=== PATIENT | female | born 1955 | race African-American/Black ===

== ENCOUNTER 2017-12-21 15:26 | Inpatient (IN) | payer MEDICARE, MEDICAID ==
[2017-12-21 16:45] LABS: #Lymphocytes 1.2 thou/uL (1.20-3.40); #Monocytes 0.7 thou/uL (0.11-0.59); %Basophils 0.3 % (0.0-1.0); %Eosinophils 0.3 % (0.0-10.0); %Monocytes 10.2 % (0.0-10.0); %Neutrophils 72.2 % (42.0-75.0); Hemoglobin 13.4 g/dL (12.0-16.0); Mean Corpuscular Hemoglobin 29.5 pg (27.0-31.0); Mean Corpuscular Volume 92.1 fL (78.0-98.0); Mean Platelet Volume 7.7 fL (7.4-10.4); Platelet Count 137 thou/uL (130-400); RBC Distribution Width 12.7 % (11.5-14.5); Red Blood Cell (RBC) Count 4.54 mill/uL (4.20-5.40)
--- NOTE | 2017-12-21 17:05 | CT ---
NONCONTRAST CT HEAD: 12/21/2017 HISTORY: Trauma. The patient fell one day ago. Right-sided neck pain. COMPARISON: None available. FINDINGS: There is a low density focus in the left thalamus, as well as in the left lentiform nucleus, related to lacunar infarctions of indeterminate age. There is no evidence of an acute cortical infarction, h emorrhage, mass effect, or midline shift. Scattered areas of diminished attenuation are seen within the periventricular white matter, which are nonspecific but likely reflective of chronic small vessel ischemic changes. A low density focus is present at the right aspect of the maurice, which likely represents a lacunar inf arction, also of indeterminate age. There is mild cerebral volume loss, not unexpected for the patie nt's age. The ventricular system is normal in size, shape, and position. Minimal mucosal thickening is present in the left maxillary antrum. The remainder of the visualized paranasal sinuses and mastoid air cells are clear. The calvarial structures are intact without evide nce of a fracture. IMPRESSION: 1. Lacunar infarctions in the left thalamus, left lentiform nucleus, and right maurice, of indeterminat e age. 2. Chronic small vessel ischemic changes. 3. Mild cerebral volume loss. 4. No definite acute intracranial abnormality is demonstrated. POS: [facility]
[2017-12-21 17:09] LABS: CKMB 31.5 ng/mL (0-6.6); Troponin I 2.422 ng/mL (< 0.028)
--- NOTE | 2017-12-21 17:09 | CT ---
NONCONTRAST CT CERVICAL SPINE: Date: 12/21/17 HISTORY: Trauma. Patient tripped over a rug and fell 1 day ago. Patient has right shoulder pain, as well as ri ght-sided neck pain. TECHNIQUE: Contiguous axial CT images are obtained through the cervical spine from skull base to cervicothoracic junction. Sagittal and coronal reformatted images are provided. FINDINGS: No fracture or subluxation is seen involving the cervical spine. Prominent multilevel osteophytes are seen at the C4-5, C5-6, and C6-7 levels anteriorly. Minimal post erior osteophyte formation is seen at multiple levels of the cervical spine. There is mild right-side d neural foraminal narrowing at the C3-4 level related to uncinate process hypertrophy. The prevertebral soft tissues are within normal limits. Prominent vascular calcifications are seen in the carotid artery bifurcations, as well as involving t he carotid siphons. There is a small amount of fluid in prevertebral space extending from the C2-3 level to the level of the C4 vertebral body. Ligamentous injury cannot be excluded. MRI cervical spine is recommended for f urther evaluation. IMPRESSION: 1. Small amount of fluid in the prevertebral space anterior to the upper cervical spine. Ligamentous injury cannot be excluded based on this exam, and further evaluation with MRI cervical spine is tutu mmended. 2. No fracture or subluxation involving the cervical spine. 3. Multilevel degenerative changes. There is a disc osteophyte complex seen at the C3-4 level result ing in what appears to be severe narrowing of the central spinal canal. There is also mild to moderat e right-sided neural foraminal narrowing at this level. Above findings discussed with Dr. Burks in the emergency department on 12/21/17 at 1644 hours. CODE CR. POS: [facility]
[2017-12-21 18:25] LABS: ALT (SGPT) 105 U/L (8-55); AST (SGOT) 210 U/L (5-34); Albumin 3.4 g/dL (3.5-5.0); Alkaline Phosphatase 94 U/L (40-150); Anion Gap 15 mmol/L (10-20); BUN (Urea Nitrogen) 7 mg/dL (9.8-20.1); Bilirubin, Total 1.2 mg/dL (0.2-1.2); CK (CPK) 1727 U/L (29-168); Calc. Creatinine Clearance 0 mL/min (70-130); Calcium 9.3 mg/dL (7.8-10.44); Carbon Dioxide 20 mmol/L (22-29); Chloride 99 mmol/L (98-107); Estimated GFR-MDRD Greater than 90; Globulin 4.7 g/dL (2.4-3.5); Glucose 94 mg/dL (70-105); Potassium 3.7 mmol/L (3.5-5.1); Protein, Total 8.1 g/dL (6.0-8.3); Sodium 130 mmol/L (136-145)
--- NOTE | 2017-12-21 18:31 | RAD ---
RIGHT SHOULDER THREE VIEWS: HISTORY: Right shoulder pain. TECHNIQUE: AP internal, external, and scapular Y views of the right shoulder obtained. FINDINGS: Three views of the right shoulder demonstrate no evidence of right shoulder fractures, subluxations, or bony lesions. IMPRESSION: Normal three views right shoulder. POS: [facility]
--- NOTE | 2017-12-21 18:35 | RAD ---
RIGHT KNEE THREE VIEWS: HISTORY: Trauma. Right knee pain. TECHNIQUE: AP, lateral, and oblique views of the right knee obtained. FINDINGS: Three views of the right knee demonstrate osteoarthritic changes seen in the anterior, medial, and la teral compartments of the right knee. This appears to be chronic. No evidence of acute right knee fracture seen. Atherosclerotic calcification seen of the superficial femoral artery and popliteal artery. IMPRESSION: Right knee osteoarthritic changes without evidence of acute abnormalities seen. POS: [facility]
[2017-12-21] MEDS ORDERED: HYDROcodone/Acetaminophen 5/325 mg Tablet ONE (18:45)
--- NOTE | 2017-12-21 18:59 | MRI ---
MRI CERVICAL SPINE: HISTORY: Fall. Tripped over rug, with shoulder pain. TECHNIQUE: Multiplanar, multisequence, noncontrast enhanced MR images of the cervical spine obtained. FINDINGS: C1-C2: Unremarkable. C2-C3: Unremarkable. C3-C4: There is marked disk desiccation. There is a broad-based disk osteophyte complex, centrally, compressing the thecal sac, resulting in severe C3-C4 central spinal stenosis. There is severe righ t C3-C4 neural foraminal narrowing and moderate to severe left C3-C4 neural foraminal narrowing due t o uncovertebral osteophyte hypertrophy. The spinal cord is compressed at this level, without evidenc e of definite edema at this time. C4-C5: There is disk desiccation seen. There is a broad-based disk osteophyte complex centrally, co mpressing the thecal sac, resulting in moderate to severe central spinal stenosis and mild to moderat e bilateral neural foraminal narrowing, due to uncovertebral osteophyte hypertrophy. C5-C6: Disk desiccation is seen. There is a broad-based disk osteophyte complex centrally, resultin g in a moderate degree of central spinal stenosis. There is severe bilateral C5-C6 neural foraminal narrowing, due to uncovertebral osteophyte hypertrophy. C6-C7: Disk desiccation is seen. There is a broad-based disk osteophyte complex, resulting in mild to moderate central stenosis. There is moderate bilateral C6-C7 neural foraminal narrowing. C7-T1: A small central disk protrusion is seen. The central canal does not demonstrate significant cord compression or neural foraminal narrowing. IMPRESSION: 1. Severe/critical C3-C4 central and right neural foraminal narrowing. 2. Broad-based central disk osteophyte complexes, compressing the thecal sac at C4-C5, C5-C6, and C6 -C7, to a lesser degree. 3. There is also severe C5-C6 neural foraminal narrowing due to uncovertebral osteophyte hypertrophy . POS: [facility]
[2017-12-21] MEDS ORDERED: Enoxaparin Sodium 60 MG/0.6 ML SYRINGE ONE (19:33)
[2017-12-21] MEDS ORDERED: Nitroglycerin 0.4 MG TAB (25 Tab Bottle) SL PRN (19:55)
[2017-12-21] MEDS ORDERED: Ondansetron HCl/PF 4 MG/2 ML Vial IVP PRN (19:57)
[2017-12-21 20:48] LABS: Troponin I 3.264 ng/mL (< 0.028)
[2017-12-21 23:06] LABS: Critical Call Chem Troponin I RESULT DECREASING; Troponin I 3.213 ng/mL (< 0.028)
[2017-12-21] MEDS: Atorvastatin Calcium 40 MG TAB PO SCH (23:07)
[2017-12-21 23:17] VITALS: BMI 22.2
[2017-12-22] MEDS: Sodium Chloride 0.9% 1,000 ML IV SCH ×3 (03:54→18:02)
[2017-12-22 06:46] LABS: Anion Gap 14 mmol/L (10-20); BUN (Urea Nitrogen) 12 mg/dL (9.8-20.1); Calc. Creatinine Clearance 79 mL/min (70-130); Calcium 8.9 mg/dL (7.8-10.44); Carbon Dioxide 19 mmol/L (22-29); Chloride 99 mmol/L (98-107); Cholesterol 122 mg/dl (< 200 Desired); Estimated GFR-MDRD Greater than 90; Glucose 86 mg/dL (70-105); HDL Cholesterol 60 mg/dL (>60 Neg Risk); LDL Cholesterol, Calculated 54 mg/dL; Potassium 3.7 mmol/L (3.5-5.1); Sodium 128 mmol/L (136-145); Triglycerides 39 mg/dL (Less than 150)
--- NOTE | 2017-12-22 07:56 | HP ---
TIME OF EVALUATION: 7:50 p.m. PRIMARY CARE PHYSICIAN: Dr. Demarcus Serrato. CODE STATUS: The patient is DNR/DNI as she has expressed herself during the interview. The daughter was at bedside and agree with the patient's wishes. CHIEF COMPLAINT: "I had a fall, stay on the floor for a long time." HISTORY OF PRESENT ILLNESS: This is a 62-year-old female patient with past medical history of hypertension, COPD, CVA, multiple TIAs, chronic pain, migraine, benign paroxysmal vertigo, bradycardia, came to the hospital after having a mechanical fall just reported that she has tripped and fell. She stayed on the floor for few hours and waiting for the family to comment. Patient reported not passing out, there was no clear triggers, no alleviating factors, no chest pain. The patient was found to have elevated CK that was not significantly elevated. We will give some hydration and monitor kidney function. The other finding was the patient has elevated troponin of 2+, second troponin around 3, admitting the patient for acute ND, elevation of the CK. Trauma workup was negative. Symptoms were severe. REVIEW OF SYSTEMS: Constitutional: No fever or chills or generalized weakness. Respiratory: No cough, sputum production, or shortness of breath. Cardiovascular: No chest pain, no palpitation. Gastrointestinal: No nausea, vomiting, diarrhea, or abdominal pain. Central Nervous Systems: No dizziness, headache, or feeling lightheaded. Genitourinary: No burning on urination. Extremities: No leg swelling. All other systems were reviewed and negative except for the findings mentioned above. PAST MEDICAL HISTORY: Positive and mentioned in the HPI. PAST SURGICAL HISTORY: Appendectomy. PSYCHIATRIC HISTORY: No previous psychiatric history. SOCIAL HISTORY: No alcohol, no drugs, no smoking history. FAMILY HISTORY: Father and mother with hypertension and heart problems. REPORTED MEDICATIONS: Butalbital-acetaminophen 325 mg/40 mg q.6 hours p.r.n., losartan/hydrochlorothiazide 100 mg/25 mg, Tylenol extra strength 500 mg 1-2 tablets q.6 hours p.r.n. PHYSICAL EXAMINATION: VITAL SIGNS: On presentation, blood pressure 147/88 with heart rate 71, respiratory rate was 16, temperature 98.2, pain was 5, oxygen saturation 98 on room air. GENERAL APPEARANCE: The patient is alert, oriented, in no any acute distress, some pain due to the fall. HEENT: Eyes: Normal conjunctivae. Moist oral mucosa. Anicteric. NECK: No JVD. RESPIRATORY: Bilateral air entry. No rales, no wheezes. Symmetric expansion. CARDIOVASCULAR: Normal rate, regular rhythm. No murmurs, no gallop. EXTREMITIES: No edema. ABDOMEN: Soft, normal bowel sounds. MUSCULOSKELETAL: Baseline range of motion and strength and some mild tenderness due to fall. Peripheral pulses seem to be intact. Capillary refills seem to be intact. SKIN: Warm and intact. No pallor, no rash, no redness. NEUROLOGIC: Baseline sensorium. No evidence of any new focal weakness. Baseline speech. Cranial nerves seem to be intact. PSYCHIATRIC: The patient is in good mood. No anxiety. Oriented, optimal judgment. IMAGING: EKG was reviewed. The patient has normal sinus rhythm with a rate of 54, RI 148, QRS 68, QT corrected 474. No other ischemic findings on the EKG. Also, the waves seems to be more symmetric than usual. Trauma workup, brain CT , lacunar infarction of the left thalamus, left lentiform nucleus, and right maurice of indeterminate age, chronic small vessel disease, ischemic changes, mild cerebral volume loss, no definite acute intracranial abnormalities are demonstrated. Cervical spine CT, the patient has small amount of fluid in the prevertebral space anterior to the upper cervical spine, ligamentous injuries cannot be excluded on this exam and further evaluation with MRI cervical spine is recommended. No fracture or subluxation involving the cervical spine, multilevel degenerative changes. There are disk osteophyte complexes at the C3- C4 level resulting in what appears to be severe narrowing of the central spinal canal. There is also [id number] right-sided neural foraminal narrowing of this level. Knee x-ray was done. The patient has right knee osteoarthritic changes without evidence of acute abnormalities. Shoulder x-ray normal in three views of right shoulder. Cervical spine MRI, severe critical C3-C4 central and right neural foraminal narrowing, broad-based central disk osteophyte complexes compressing the thecal sac at C4-C5, C5-C6, and C6-C7 or lesser degree. There is also severe C5-C6 neural foraminal narrowing due to uncovertebral osteophyte hypertrophy. LABORATORY DATA: Labs were reviewed. The patient had white count of 7.0, hemoglobin 13.4, MCV 92, platelet count 137,000. Sodium 130, potassium 3.7, chloride 99, carbon dioxide was 20, anion gap 15, BUN 7, creatinine 0.66, GFR greater than 90, glucose 94, calcium 9.3, total bilirubin 1.2, AST 210, ALT 105. CK 1727, CK-MB 31, troponin first one was 2.4 and second one was 3.2, albumin 3.4, globulin 4.7, albumin globulin ratio 0.7. ASSESSMENT AND PLAN: The patient will be placed in the hospital with the following medical problems: 1. Srm-LO-unkqufe elevation myocardial infarction. The patient had troponin 2.4, second one 3.2. The patient has been placed on beta-blockers, aspirin, Lovenox, statins. Blood pressure in the (09:15) inhibitors in the next 24 hours if blood pressure allows it. Cardiology consult continue. Place the patient on n.p.o. 2. Elevated CK, mild elevation in 1000 range. This is likely secondary to seen on the floor for a long time. Kidney function is normal. We will monitor. We will give hydration (09:54) of history of her cardiac function. 3. Mildly elevated liver function tests, might be related to acute rhabdo. 4. Cervical pain secondary to severe C3-C4 central and right neural foraminal narrowing. Neurosurgery has been called. We will follow recommendations. 5. Deep venous thrombosis prophylaxis. 6. History of hypertension, this is controlled. We will monitor. We will adjust treatment as needed. 7. History of migraine, this is chronic, not present at this point. We will adjust treatment depending on patient's clinical response. 8. History of chronic obstructive pulmonary disease, not present at this time. Reconcile home medications. Adjust treatment as needed. MTDD
[2017-12-22] MEDS ORDERED: Enoxaparin Sodium 60 MG/0.6 ML SYRINGE SC SCH (08:00)
[2017-12-22 08:07] LABS: Hemoglobin 12.3 g/dL (12.0-16.0); Mean Corpuscular HGB CONC 31.7 g/dL (32.0-36.0); Mean Corpuscular Hemoglobin 30.6 pg (27.0-31.0); Mean Corpuscular Volume 96.4 fL (78.0-98.0); Mean Platelet Volume 8.4 fL (7.4-10.4); Platelet Count 139 thou/uL (130-400); RBC Distribution Width 12.8 % (11.5-14.5); Red Blood Cell (RBC) Count 4.01 mill/uL (4.20-5.40); White Blood Cell (WBC) Count 5.4 thou/uL (4.8-10.8)
[2017-12-22] MEDS ORDERED: Enoxaparin Sodium 40 MG/0.4 ML SYRINGE SC SCH (09:00)
[2017-12-22 09:01] LABS: Band 1 % (5-11); Eosinophils 2 % (0-10); Lymphocytes 44 % (21-51); MDiff Complete? YES; Monocytes 7 % (0-10); Neutrophil 46 % (42-75); PLT Morphology Comment Appears Adequate; Polychromasia SLIGHT = 2-3 cells (100X) (0-2/hpf)
[2017-12-22] MEDS: Metoprolol Tartrate 25 MG TAB PO SCH ×2 (09:05→21:09)
[2017-12-22] MEDS: Aspirin 325 mg Enteric Coated Tablet PO SCH (09:05)
--- NOTE | 2017-12-22 09:24 | CON ---
DATE OF CONSULTATION: 12/22/2017 REASON FOR CONSULTATION: Elevated troponin. PRIMARY MODERATE NEEDS TEACHER: None. HISTORY OF PRESENT ILLNESS: Ms. Hurley is a pleasant 62-year-old woman who recently fell. She state s she tripped and fell. She got her feet caught up in a rug. She denied any recent chest pain, pres sure, shortness of breath, syncope or presyncope. Troponin was performed from the emergency room wit h a troponin of 3. She also had a cervical x-ray in addition to a spinal MRI which showed severe and critical stenosis at the C3-C4 level. She again has no previous history of underlying coronary disease. Past cardiac risk factors include hypertension and hyperlipidemia. PAST MEDICAL HISTORY: As above including appendectomy. SOCIAL HISTORY: No current tobacco or alcohol use. CURRENT MEDICATIONS: Include atenolol, losartan/hydrochlorothiazide. REVIEW OF SYSTEMS: Ten-point review of systems reviewed as above, otherwise negative. PHYSICAL EXAMINATION: VITAL SIGNS: Blood pressure 120/81, pulse 60, temperature 98.3. GENERAL: She is currently in a C-collar. NEUROLOGIC: The patient is alert and oriented times 3 with no focal neurologic deficits. HEENT: Sclerae without icterus. Mouth has moist mucous membranes with normal pallor. NECK: No JVD. Carotid upstroke brisk. No bruits bilaterally. LUNGS: Clear to auscultation with unlabored respirations. BACK: No scoliosis or kyphosis. CARDIAC: Regular rate and rhythm with normal S1 and S2. No S3 or S4 noted. No significant rubs, mur murs, thrills, or gallops noted throughout the precordium. PMI is not displaced. There is no parast ernal heave. ABDOMEN: Soft, nontender, nondistended. No peritoneal signs present. No hepatosplenomegaly. No abn ormal striae. EXTREMITIES: 2+ femoral and 2+ dorsalis pedis pulses. No cyanosis, clubbing, or edema. SKIN: No gross abnormalities. PERTINENT LABS: Hemoglobin 12.3, creatinine 0.7. Peak troponin 3.264. EKG normal sinus rhythm, nor mal EKG. IMPRESSION: 1. Elevated troponin. 2. Recent fall. 3. Severe spinal stenosis. RECOMMENDATIONS: Certainly a difficult situation with Ms. Hurley. Her troponin is fairly elevated w ith an elevated CK-MB of 31. We will need to discuss with surgery on how to proceed. May consider a diagnostic angio. At this point, would not recommend intervening with stent given the need for aspi rin, Plavix, and heparin. I discussed coronary angiography in full detail with Ms. Hurley.
[2017-12-22] MEDS ORDERED: Lidocaine 1% (PF) 30 ML VIAL ONE (12:38)
--- NOTE | 2017-12-22 16:54 | CON ---
DATE OF CONSULTATION: 12/22/2017 HISTORY OF PRESENT ILLNESS: Ms. Hurley is a very pleasant 62-year-old woman who was admitted to [place] following a fall with elevated troponin. She reports to me that she has been having quite a few of these falls, namely stating that there had been a specific incident of 14 separate falls over the last 4 months. She states that that is an increase from her typical, which in the past started roughly 3 years ago or so, she started to have increasing falls after a stroke, but then over the last few months, she feels like that is progressively getting worse, more frequent and then now she has in the last few weeks started to experience significant hand numbness and weakness. The MRI performed in the Emergency Department reveals severe cervical spinal stenosis at C3-C4 with what looks to be some T2 signal change in the cord. On examination, she has clumsy fine motor movement in the bilateral hands. Her assembler arranger strength is maintained. Her Lee is negative. She has a negative Spurling's maneuver. I discussed with her that given the T2 signal change in her progressive myopathic symptoms that she will likely need surgical intervention at some point. She understands this and is on board. We will plan to see her in the outpatient setting for this. She does not need to wear her cervical collar for this specific issuel. I understand that she also is pending some cardiac intervention for her elevated troponins, we will defer to cardiology and plan around their interventions. GLADIS
--- NOTE | 2017-12-22 17:34 | PDOC.PN ---
- Subjective Encounter Start Date: 12/22/17 Encounter Start Time: 09:00 Pt seen for followup re: NSTEMI. Denies chest pain, shortness of breath, fevers or chills. - Objective Resuscitation Status: Resuscitation Status DNR:Do Not Resuscitate MAR Reviewed: Yes Vital Signs & Weight: Vital Signs (12 hours) Temp Pulse Resp BP Pulse Ox 12/22/17 15:16 98.5 F 66 14 151/79 H 97 12/22/17 11:54 98.0 F 57 L 14 139/80 98 12/22/17 08:00 98.3 F 60 14 128/81 97 Weight Weight 129 lb 11.2 oz Result Diagrams: 12/22/17 05:28 12/22/17 05:28 EKG Reviewed by me: Yes (Tele: NSR) Phys Exam - Physical Examination Constitutional: NAD HEENT: moist MMs, sclera anicteric, oral pharynx no lesions, 2+ tonsils cervical collar Respiratory: no wheezing, no rales, no rhonchi, clear to auscultation bilateral Cardiovascular: RRR, no rub S1, S2 Gastrointestinal: soft, non-tender, no distention, positive bowel sounds Neurological: moves all 4 limbs Psychiatric: normal affect, A&O x 3 Dx/Plan (1) NSTEMI (non-ST elevated myocardial infarction) Code(s): I21.4 - NON-ST ELEVATION (NSTEMI) MYOCARDIAL INFARCTION Status: Acute Comment: continue Lovenox, Lopressor and aspirin. Continue tele monitor. (2) Hyponatremia Code(s): E87.1 - HYPO-OSMOLALITY AND HYPONATREMIA Status: Acute Comment: Pt was on thiazide diuretic at home, will stop thiazide and recheck sodium level (3) Fall Code(s): W19.XXXA - UNSPECIFIED FALL, INITIAL ENCOUNTER Status: Acute Comment: will need OT/PT eval/tx when cardiac issues stable (4) Rhabdomyolysis Code(s): M62.82 - RHABDOMYOLYSIS Status: Acute Comment: CK improving, decrease IV fluid rate to 70 ml/hr NS (5) Cervical spinal stenosis Code(s): M48.02 - SPINAL STENOSIS, CERVICAL REGION Status: Chronic Comment: await neurosurgery input (6) HTN (hypertension) Code(s): I10 - ESSENTIAL (PRIMARY) HYPERTENSION Status: Chronic Comment: controlled (7) COPD (chronic obstructive pulmonary disease) Status: Chronic Comment: stable - Plan * . Review of Systems - Review of Systems Constitutional: negative: fever, chills, sweats, weakness, malaise Respiratory: negative: Cough, Shortness of Breath, SOB with Excertion, Pleuritic Pain, Wheezing Cardiovascular: negative: chest pain, palpitations, orthopnea, paroxysmal nocturnal dyspnea, edema, light headedness Gastrointestinal: negative: Nausea, Vomiting, Abdominal Pain, Diarrhea, Constipation, Melena, Hematochezia Genitourinary: negative: Dysuria, Frequency, Incontinence, Hematuria, Retention Skin: negative: Rash, Lesions, Jerrell, Bruising - Medications/Allergies Allergies/Adverse Reactions: Allergies Allergy/AdvReac Type Severity Reaction Status Date / Time No Known Drug Allergies Allergy Verified 12/21/17 20:06 Medications: Current Medications Acetaminophen (Tylenol) 650 mg PO Q4H PRN PRN Reason: Headache/Fever or Pain Aspirin (Ecotrin) 325 mg PO DAILY [facility] Last Admin: 12/22/17 09:05 Dose: 325 mg Atorvastatin Calcium (Lipitor) 80 mg PO HS [facility] Last Admin: 12/21/17 23:07 Dose: 80 mg Enoxaparin Sodium (Lovenox) 60 mg SC 0900,2100 [facility] Sodium Chloride (Normal Saline 0.9%) 1,000 mls @ 125 mls/hr IV .Q8H [facility] Last Admin: 12/22/17 14:01 Dose: 1,000 mls Metoprolol Tartrate (Lopressor) 12.5 mg PO BID [facility] Last Admin: 12/22/17 09:05 Dose: 12.5 mg Nitroglycerin (Nitrostat) 0.4 mg SL Q5MIN PRN PRN Reason: Chest Pain Ondansetron HCl (Zofran) 4 mg IVP Q6H PRN PRN Reason: Nausea/Vomiting
[2017-12-22] MEDS: Enoxaparin Sodium 60 MG/0.6 ML SYRINGE SC SCH (21:08)
[2017-12-22] MEDS: Atorvastatin Calcium 40 MG TAB PO SCH (21:08)
[2017-12-23] MEDS: Sodium Chloride 0.9% 1,000 ML IV SCH (02:35)
[2017-12-23 05:56] LABS: ALT (SGPT) 84 U/L (8-55); AST (SGOT) 131 U/L (5-34); Albumin 2.8 g/dL (3.5-5.0); Alkaline Phosphatase 70 U/L (40-150); Anion Gap 8 mmol/L (10-20); BUN (Urea Nitrogen) 9 mg/dL (9.8-20.1); Bilirubin, Total 1.1 mg/dL (0.2-1.2); CK (CPK) 746 U/L (29-168); Calc. Creatinine Clearance 90 mL/min (70-130); Calcium 8.4 mg/dL (7.8-10.44); Carbon Dioxide 22 mmol/L (22-29); Chloride 105 mmol/L (98-107); Estimated GFR-MDRD Greater than 90; Globulin 3.6 g/dL (2.4-3.5); Glucose 110 mg/dL (70-105); Potassium 3.5 mmol/L (3.5-5.1); Protein, Total 6.4 g/dL (6.0-8.3); Sodium 131 mmol/L (136-145)
[2017-12-23 06:18] LABS: #Eosinphils 0.1 thou/uL (0.0-0.7); #Lymphocytes 1.4 thou/uL (1.20-3.40); #Monocytes 0.4 thou/uL (0.11-0.59); #Neutrophils 1.7 thou/uL (1.40-6.50); %Basophils 0.8 % (0.0-1.0); %Eosinophils 2.3 % (0.0-10.0); %Lymphocytes 38.6 % (21.0-51.0); %Neutrophils 47.4 % (42.0-75.0); Mean Corpuscular HGB CONC 32.5 g/dL (32.0-36.0); Mean Corpuscular Hemoglobin 30.8 pg (27.0-31.0); Mean Corpuscular Volume 94.8 fL (78.0-98.0); Mean Platelet Volume 8.2 fL (7.4-10.4); PLT Morphology Comment Appears Decreased; Platelet Count 119 thou/uL (130-400); RBC Distribution Width 12.4 % (11.5-14.5); Red Blood Cell (RBC) Count 3.58 mill/uL (4.20-5.40); White Blood Cell (WBC) Count 3.5 thou/uL (4.8-10.8)
[2017-12-23] MEDS: Enoxaparin Sodium 60 MG/0.6 ML SYRINGE SC SCH (08:25)
[2017-12-23] MEDS: Acetaminophen 325 MG TAB PO PRN (08:25)
[2017-12-23] MEDS: Aspirin 325 mg Enteric Coated Tablet PO SCH (08:26)
--- NOTE | 2017-12-23 08:53 | ADD-CON ---
ADDENDUM DATE OF SERVICE: 12/22/2017 I visited again Ms. Hurley. Ms. Hurley also visited with Dr. Eleazar Palencia. Ms. Hurley states she was on the floor after her fall for almost 24 hours. This may be part of why her troponin was elevated a t 3. I also discussed the potential surgery with Dr. Palencia. He states surgery can be delayed for mo re than 2 months. Given that her troponin was elevated with no symptoms, a normal LVEF on recent echo, and a normal EKG , we would recommend a noninvasive stress study to assess for any areas of ischemia. Her troponin el evation may have been from demand ischemia versus recent fall and rhabdomyolysis. Otherwise, I have no further recommendations.
[2017-12-23] MEDS: Metoprolol Tartrate 25 MG TAB PO SCH ×2 (12:19→21:40)
--- NOTE | 2017-12-23 14:46 | NM ---
NUCLEAR MEDICINE CARDIAC STRESS WITH EF AND WALL MOTION: 12/23/17 HISTORY: Elevated troponins. COMPARISON: None. TECHNIQUE: Patient administered 10.2 millicuries of technetium 99m Sestamibi for rest imaging and 29.6 millicuri es of technetium 99m Sestamibi for stress imaging. Cardiac gating is performed. FINDINGS: Homogeneous distribution of the radiotracer in the left ventricle. No reversibility. No fixed defect. TID is 1.12. End diastolic volume is 79 mL. End systolic volume is 26 mL. CARDIAC GATING: Normal motion and thickening. 68% ejection fraction. IMPRESSION: 1. No reversibility. No fixed defect. 2. 68% ejection fraction. POS: [facility]
[2017-12-23] MEDS ORDERED: ADENOSINE 60 MG/20 ML VIAL ONE (14:58)
--- NOTE | 2017-12-23 18:42 | PDOC.PN ---
- Subjective Encounter Start Date: 12/23/17 Encounter Start Time: 18:40 Pt seen for followup re: hyponatremia. Denies chest pain, shortness of breath, fevers or chills. - Objective Resuscitation Status: Resuscitation Status DNR:Do Not Resuscitate MAR Reviewed: Yes Vital Signs & Weight: Vital Signs (12 hours) Temp Pulse Pulse Pulse Resp BP BP 12/23/17 16:00 99.1 F 56 L 16 12/23/17 14:53 59 L 60 176/88 H 144/88 H 12/23/17 13:52 59 L 64 176/81 H 170/92 H 12/23/17 12:00 98.5 F 95 16 12/23/17 08:00 98.6 F 56 L 16 BP Pulse Ox 12/23/17 16:00 165/90 H 94 L 12/23/17 14:53 12/23/17 13:52 12/23/17 12:00 181/85 H 95 12/23/17 08:00 165/89 H Weight Weight 129 lb 11.2 oz Result Diagrams: 12/23/17 05:11 12/23/17 05:11 EKG Reviewed by me: Yes (Tele: NSR) Phys Exam - Physical Examination Constitutional: NAD HEENT: moist MMs, sclera anicteric, oral pharynx no lesions, 2+ tonsils Neck: no nodes, no JVD, supple, full ROM Respiratory: no wheezing, no rales, no rhonchi, clear to auscultation bilateral Cardiovascular: RRR, no rub S1, S2 Gastrointestinal: soft, non-tender, no distention, positive bowel sounds R knee wound Neurological: moves all 4 limbs Psychiatric: normal affect, A&O x 3 Dx/Plan (1) Hyponatremia Code(s): E87.1 - HYPO-OSMOLALITY AND HYPONATREMIA Status: Acute Comment: sodium level improved to 131, thiazide on hold (2) Fall Code(s): W19.XXXA - UNSPECIFIED FALL, INITIAL ENCOUNTER Status: Acute Comment: will need OT/PT (3) Rhabdomyolysis Code(s): M62.82 - RHABDOMYOLYSIS Status: Acute Comment: CK improving, continue IV fluids (4) Cervical spinal stenosis Code(s): M48.02 - SPINAL STENOSIS, CERVICAL REGION Status: Chronic Comment: appreciate neurosurgery input (5) HTN (hypertension) Code(s): I10 - ESSENTIAL (PRIMARY) HYPERTENSION Status: Chronic Comment: controlled (6) COPD (chronic obstructive pulmonary disease) Status: Chronic Comment: stable (7) NSTEMI (non-ST elevated myocardial infarction) Code(s): I21.4 - NON-ST ELEVATION (NSTEMI) MYOCARDIAL INFARCTION Status: Ruled -out Comment: normal stress test - Plan * . Review of Systems - Review of Systems Constitutional: negative: fever, chills, sweats, weakness, malaise Respiratory: negative: Cough, Shortness of Breath, SOB with Excertion, Pleuritic Pain, Wheezing Cardiovascular: negative: chest pain, palpitations, orthopnea, paroxysmal nocturnal dyspnea, edema, light headedness Gastrointestinal: negative: Nausea, Vomiting, Abdominal Pain, Diarrhea, Constipation, Melena, Hematochezia Genitourinary: negative: Dysuria, Frequency, Incontinence, Hematuria, Retention Skin: Bruising - Medications/Allergies Allergies/Adverse Reactions: Allergies Allergy/AdvReac Type Severity Reaction Status Date / Time No Known Drug Allergies Allergy Verified 12/21/17 20:06 Medications: Current Medications Acetaminophen (Tylenol) 650 mg PO Q4H PRN PRN Reason: Headache/Fever or Pain Last Admin: 12/23/17 08:25 Dose: 650 mg Aspirin (Ecotrin) 325 mg PO DAILY [facility] Last Admin: 12/23/17 08:26 Dose: 325 mg Atorvastatin Calcium (Lipitor) 80 mg PO HS [facility] Last Admin: 12/22/17 21:08 Dose: 80 mg Enoxaparin Sodium (Lovenox) 60 mg SC 0900,2100 [facility] Last Admin: 12/23/17 08:25 Dose: 60 mg Sodium Chloride (Normal Saline 0.9%) 1,000 mls @ 70 mls/hr IV .[id number] [facility] Last Admin: 12/23/17 02:35 Dose: 1,000 mls Metoprolol Tartrate (Lopressor) 12.5 mg PO BID [facility] Last Admin: 12/23/17 12:19 Dose: 12.5 mg Nitroglycerin (Nitrostat) 0.4 mg SL Q5MIN PRN PRN Reason: Chest Pain Ondansetron HCl (Zofran) 4 mg IVP Q6H PRN PRN Reason: Nausea/Vomiting
[2017-12-23] MEDS ORDERED: Losartan 25 MG TAB PO SCH (19:00)
[2017-12-23] MEDS: Atorvastatin Calcium 40 MG TAB PO SCH (21:40)
[2017-12-24] MEDS: Sodium Chloride 0.9% 1,000 ML IV SCH ×4 (04:38→19:30)
[2017-12-24 06:22] LABS: #Eosinphils 0.1 thou/uL (0.0-0.7); #Lymphocytes 1.3 thou/uL (1.20-3.40); #Monocytes 0.5 thou/uL (0.11-0.59); #Neutrophils 2.2 thou/uL (1.40-6.50); %Basophils 1.1 % (0.0-1.0); %Eosinophils 2.5 % (0.0-10.0); %Lymphocytes 31.1 % (21.0-51.0); %Monocytes 12.3 % (0.0-10.0); Hemoglobin 11.4 g/dL (12.0-16.0); Mean Corpuscular HGB CONC 31.9 g/dL (32.0-36.0); Mean Corpuscular Hemoglobin 30.4 pg (27.0-31.0); Mean Corpuscular Volume 95.1 fL (78.0-98.0); Mean Platelet Volume 8.8 fL (7.4-10.4); Platelet Count 119 thou/uL (130-400); RBC Distribution Width 12.4 % (11.5-14.5); Red Blood Cell (RBC) Count 3.76 mill/uL (4.20-5.40); White Blood Cell (WBC) Count 4.1 thou/uL (4.8-10.8)
[2017-12-24 06:34] LABS: ALT (SGPT) 88 U/L (8-55); AST (SGOT) 136 U/L (5-34); Alkaline Phosphatase 69 U/L (40-150); Anion Gap 11 mmol/L (10-20); BUN (Urea Nitrogen) 8 mg/dL (9.8-20.1); Bilirubin, Total 0.9 mg/dL (0.2-1.2); CK (CPK) 1297 U/L (29-168); Calc. Creatinine Clearance 88 mL/min (70-130); Calcium 8.7 mg/dL (7.8-10.44); Carbon Dioxide 21 mmol/L (22-29); Chloride 104 mmol/L (98-107); Estimated GFR-MDRD Greater than 90; Globulin 3.7 g/dL (2.4-3.5); Glucose 104 mg/dL (70-105); Potassium 3.5 mmol/L (3.5-5.1); Protein, Total 6.7 g/dL (6.0-8.3); Sodium 132 mmol/L (136-145)
[2017-12-24] MEDS: Acetaminophen 325 MG TAB PO PRN (08:55)
[2017-12-24] MEDS: Losartan 25 MG TAB PO SCH (08:56)
[2017-12-24] MEDS: Metoprolol Tartrate 25 MG TAB PO SCH ×2 (08:56→20:55)
[2017-12-24] MEDS: Enoxaparin Sodium 40 MG/0.4 ML SYRINGE SC SCH (08:57)
--- NOTE | 2017-12-24 13:58 | PDOC.PN ---
- Subjective Encounter Start Date: 12/24/17 Encounter Start Time: 07:00 Pt seen for followup re: rhabdomyolysis. Denies chest pain, shortness of breath , fevers or chills. No nausea or vomiting. - Objective Resuscitation Status: Resuscitation Status DNR:Do Not Resuscitate MAR Reviewed: Yes Vital Signs & Weight: Vital Signs (12 hours) Temp Pulse Resp BP Pulse Ox 12/24/17 11:55 98.4 F 56 L 16 169/79 H 95 12/24/17 08:00 98.7 F 60 16 169/85 H 96 12/24/17 04:00 98.9 F 57 L 16 165/79 H 94 L Weight Admit Weight 129 lb 11.2 oz Weight 129 lb 11.2 oz I&O: 12/23/17 12/24/17 12/25/17 06:59 06:59 06:59 Intake Total 700 Balance 700 Result Diagrams: 12/24/17 04:58 12/24/17 04:58 EKG Reviewed by me: Yes (Tele: NSR) Phys Exam - Physical Examination Constitutional: NAD HEENT: moist MMs, sclera anicteric, oral pharynx no lesions, 2+ tonsils Neck: no nodes, no JVD, supple, full ROM Respiratory: no wheezing, no rales, no rhonchi, clear to auscultation bilateral Cardiovascular: RRR, no rub S1, S2 Gastrointestinal: soft, non-tender, no distention, positive bowel sounds Neurological: moves all 4 limbs Psychiatric: normal affect, A&O x 3 Deviation from normal: Bruises Dx/Plan (1) Rhabdomyolysis Code(s): M62.82 - RHABDOMYOLYSIS Status: Acute Comment: CK worse today, pt did not have fluids most of yesterday due to stress test, continue IV fluids and recheck CK. (2) Hyponatremia Code(s): E87.1 - HYPO-OSMOLALITY AND HYPONATREMIA Status: Acute Comment: sodium level 132 today, thiazide on hold (3) Fall Code(s): W19.XXXA - UNSPECIFIED FALL, INITIAL ENCOUNTER Status: Acute Comment: will need OT/PT eval/tx (4) Cervical spinal stenosis Code(s): M48.02 - SPINAL STENOSIS, CERVICAL REGION Status: Chronic Comment: follow up with neurosurgery as outpatient (5) HTN (hypertension) Code(s): I10 - ESSENTIAL (PRIMARY) HYPERTENSION Status: Chronic Comment: controlled (6) COPD (chronic obstructive pulmonary disease) Status: Chronic Comment: stable (7) NSTEMI (non-ST elevated myocardial infarction) Code(s): I21.4 - NON-ST ELEVATION (NSTEMI) MYOCARDIAL INFARCTION Status: Ruled -out Comment: normal stress test - Plan * . Review of Systems - Review of Systems Constitutional: negative: fever, chills, sweats, weakness, malaise Respiratory: negative: Cough, Shortness of Breath, SOB with Excertion, Pleuritic Pain, Wheezing Cardiovascular: negative: chest pain, palpitations, orthopnea, paroxysmal nocturnal dyspnea, edema, light headedness Gastrointestinal: negative: Nausea, Vomiting, Abdominal Pain, Diarrhea, Constipation, Melena, Hematochezia Genitourinary: negative: Dysuria, Frequency, Incontinence, Hematuria, Retention Musculoskeletal: negative: Neck Pain, Shoulder Pain, Arm Pain, Back Pain, Hand Pain, Leg Pain, Foot Pain Skin: Bruising - Medications/Allergies Allergies/Adverse Reactions: Allergies Allergy/AdvReac Type Severity Reaction Status Date / Time No Known Drug Allergies Allergy Verified 12/21/17 20:06 Medications: Current Medications Acetaminophen (Tylenol) 650 mg PO Q4H PRN PRN Reason: Headache/Fever or Pain Last Admin: 12/24/17 08:55 Dose: 650 mg Atorvastatin Calcium (Lipitor) 80 mg PO HS [facility] Last Admin: 12/23/17 21:40 Dose: 80 mg Enoxaparin Sodium (Lovenox) 40 mg SC 0900 [facility] Last Admin: 12/24/17 08:57 Dose: 40 mg Sodium Chloride (Normal Saline 0.9%) 1,000 mls @ 70 mls/hr IV .[id number] [facility] Last Admin: 12/24/17 04:38 Dose: 1,000 mls Losartan Potassium (Cozaar) 100 mg PO DAILY [facility] Last Admin: 12/24/17 08:56 Dose: 100 mg Metoprolol Tartrate (Lopressor) 12.5 mg PO BID [facility] Last Admin: 12/24/17 08:56 Dose: 12.5 mg Nitroglycerin (Nitrostat) 0.4 mg SL Q5MIN PRN PRN Reason: Chest Pain Ondansetron HCl (Zofran) 4 mg IVP Q6H PRN PRN Reason: Nausea/Vomiting
[2017-12-24] MEDS: Atorvastatin Calcium 40 MG TAB PO SCH (20:55)
[2017-12-25 05:45] LABS: #Eosinphils 0.1 thou/uL (0.0-0.7); #Lymphocytes 1.2 thou/uL (1.20-3.40); #Monocytes 0.5 thou/uL (0.11-0.59); #Neutrophils 2.1 thou/uL (1.40-6.50); %Basophils 0.6 % (0.0-1.0); %Eosinophils 3.8 % (0.0-10.0); %Lymphocytes 29.3 % (21.0-51.0); %Monocytes 11.6 % (0.0-10.0); %Neutrophils 54.7 % (42.0-75.0); Hemoglobin 11.1 g/dL (12.0-16.0); Mean Corpuscular Hemoglobin 29.4 pg (27.0-31.0); Mean Corpuscular Volume 95.1 fL (78.0-98.0); Mean Platelet Volume 8.5 fL (7.4-10.4); Platelet Count 124 thou/uL (130-400); RBC Distribution Width 12.4 % (11.5-14.5); Red Blood Cell (RBC) Count 3.76 mill/uL (4.20-5.40); White Blood Cell (WBC) Count 3.9 thou/uL (4.8-10.8)
[2017-12-25 05:54] LABS: ALT (SGPT) 103 U/L (8-55); AST (SGOT) 155 U/L (5-34); Alkaline Phosphatase 79 U/L (40-150); Anion Gap 8 mmol/L (10-20); BUN (Urea Nitrogen) 7 mg/dL (9.8-20.1); Bilirubin, Total 0.6 mg/dL (0.2-1.2); CK (CPK) 1201 U/L (29-168); Calc. Creatinine Clearance 90 mL/min (70-130); Calcium 8.7 mg/dL (7.8-10.44); Carbon Dioxide 22 mmol/L (22-29); Chloride 105 mmol/L (98-107); Estimated GFR-MDRD Greater than 90; Globulin 3.7 g/dL (2.4-3.5); Glucose 111 mg/dL (70-105); Potassium 3.5 mmol/L (3.5-5.1); Protein, Total 6.7 g/dL (6.0-8.3); Sodium 131 mmol/L (136-145)
[2017-12-25] MEDS: Enoxaparin Sodium 40 MG/0.4 ML SYRINGE SC SCH (09:21)
[2017-12-25] MEDS: Losartan 25 MG TAB PO SCH (09:22)
[2017-12-25] MEDS: Metoprolol Tartrate 25 MG TAB PO SCH ×2 (09:22→21:41)
[2017-12-25] MEDS: Sodium Chloride 0.9% 1,000 ML IV SCH ×2 (09:23→21:41)
--- NOTE | 2017-12-25 13:13 | PDOC.PN ---
- Subjective Encounter Start Date: 12/25/17 Encounter Start Time: 07:00 Pt seen for followup re: rhabdomyolysis. Denies chest pain, shortness of breath , fevers or chills. - Objective Resuscitation Status: Resuscitation Status DNR:Do Not Resuscitate MAR Reviewed: Yes Vital Signs & Weight: Vital Signs (12 hours) Temp Pulse Pulse Pulse Resp BP BP 12/25/17 11:44 97.8 F 64 16 12/25/17 11:05 55 L 60 169/81 H 155/81 H 12/25/17 08:54 12/25/17 07:54 98.5 F 65 16 12/25/17 02:54 98.4 F 56 L 16 BP BP Pulse Ox 12/25/17 11:44 169/81 H 99 12/25/17 11:05 12/25/17 08:54 99 12/25/17 07:54 143/82 H 99 12/25/17 02:54 169/89 H 96 Weight Admit Weight 129 lb 11.2 oz Weight 129 lb 11.2 oz I&O: 12/24/17 12/25/17 12/26/17 06:59 06:59 06:59 Intake Total 700 Balance 700 Result Diagrams: 12/25/17 05:19 12/25/17 05:19 EKG Reviewed by me: Yes (Tele: NSR) Phys Exam - Physical Examination Constitutional: NAD HEENT: moist MMs Neck: supple Respiratory: clear to auscultation bilateral Cardiovascular: RRR Gastrointestinal: soft Neurological: moves all 4 limbs Psychiatric: normal affect Deviation from normal: bruises Dx/Plan (1) Rhabdomyolysis Code(s): M62.82 - RHABDOMYOLYSIS Status: Acute Comment: CK improving, continue IV fluids and recheck CK level. (2) Hyponatremia Code(s): E87.1 - HYPO-OSMOLALITY AND HYPONATREMIA Status: Acute Comment: sodium level 131 today, thiazide on hold (3) Fall Code(s): W19.XXXA - UNSPECIFIED FALL, INITIAL ENCOUNTER Status: Acute Comment: appreciate therapy services input (4) Cervical spinal stenosis Code(s): M48.02 - SPINAL STENOSIS, CERVICAL REGION Status: Chronic Comment: Pt to follow up with neurosurgery as outpatient (5) HTN (hypertension) Code(s): I10 - ESSENTIAL (PRIMARY) HYPERTENSION Status: Chronic Comment: controlled (6) COPD (chronic obstructive pulmonary disease) Status: Chronic Comment: stable (7) NSTEMI (non-ST elevated myocardial infarction) Code(s): I21.4 - NON-ST ELEVATION (NSTEMI) MYOCARDIAL INFARCTION Status: Ruled -out Comment: normal stress test - Plan * . Review of Systems - Review of Systems Respiratory: negative: Cough, Shortness of Breath, SOB with Excertion, Pleuritic Pain, Wheezing Cardiovascular: negative: chest pain, palpitations, orthopnea, paroxysmal nocturnal dyspnea, edema, light headedness - Medications/Allergies Allergies/Adverse Reactions: Allergies Allergy/AdvReac Type Severity Reaction Status Date / Time No Known Drug Allergies Allergy Verified 12/21/17 20:06 Medications: Current Medications Acetaminophen (Tylenol) 650 mg PO Q4H PRN PRN Reason: Headache/Fever or Pain Last Admin: 12/24/17 08:55 Dose: 650 mg Atorvastatin Calcium (Lipitor) 80 mg PO HS [facility] Last Admin: 12/24/17 20:55 Dose: 80 mg Enoxaparin Sodium (Lovenox) 40 mg SC 0900 [facility] Last Admin: 12/25/17 09:21 Dose: 40 mg Sodium Chloride (Normal Saline 0.9%) 1,000 mls @ 70 mls/hr IV .[id number] [facility] Last Admin: 12/25/17 09:23 Dose: 1,000 mls Losartan Potassium (Cozaar) 100 mg PO DAILY [facility] Last Admin: 12/25/17 09:22 Dose: 100 mg Metoprolol Tartrate (Lopressor) 12.5 mg PO BID [facility] Last Admin: 12/25/17 09:22 Dose: 12.5 mg Nitroglycerin (Nitrostat) 0.4 mg SL Q5MIN PRN PRN Reason: Chest Pain Ondansetron HCl (Zofran) 4 mg IVP Q6H PRN PRN Reason: Nausea/Vomiting
[2017-12-25] MEDS ORDERED: Loperamide HCl 2 MG CAP PO PRN (15:09)
[2017-12-25] MEDS ORDERED: Loperamide HCl 2 MG CAP PO SCH (15:15)
[2017-12-25] MEDS: Atorvastatin Calcium 40 MG TAB PO SCH (21:41)
[2017-12-26] MEDS: Acetaminophen 325 MG TAB PO PRN (03:02)
[2017-12-26] MEDS: Enoxaparin Sodium 40 MG/0.4 ML SYRINGE SC SCH (09:21)
[2017-12-26] MEDS: Losartan 25 MG TAB PO SCH (09:22)
[2017-12-26] MEDS: Metoprolol Tartrate 25 MG TAB PO SCH (09:22)
[2017-12-26 11:47] VITALS: BP 170/92; TEMP 98.2
--- NOTE | 2017-12-26 11:47 | EKG ---
Test Reason : ELEVATED CARDIAC Blood Pressure : / mmHG Vent. Rate : 064 BPM Atrial Rate : 064 BPM P-R Int : 148 ms QRS Dur : 066 ms QT Int : 460 ms P-R-T Axes : 067 015 054 degrees QTc Int : 474 ms Normal sinus rhythm Normal ECG Confirmed by RABIA REED DO ([id number]), editorial intern SERENE RODRIGUEZ ([id number]) on 12/26/2017 11:46:47 AM Referred By: DO SOLO Confirmed By:RABIA REED DO
[2017-12-26] MEDS ORDERED: Amlodipine 5 MG TAB PO SCH (12:00)
--- NOTE | 2017-12-26 13:54 | DIS ---
DATE OF ADMISSION: 12/21/2017 DATE OF DISCHARGE: 12/26/2017 PRIMARY CARE PROVIDER: Demarcus Serrato D.O. DISCHARGE DIAGNOSES: 1. Rhabdomyolysis. 2. Hyponatremia. 3. Fall. 4. Elevated troponin I. 5. Cervical spinal stenosis. CONDITION OF PATIENT ON THE DAY OF DISCHARGE: Stable. I assessed Ms. Hurley on the day of discharge . She denies any chest pain or shortness of breath. Vital signs are stable. S1 and S2 are heard, r egular. Lungs are clear to auscultation bilaterally. CONSULTATIONS DURING THIS HOSPITALIZATION: Neurosurgery, Dr. Palencia and Cardiology, Dr. Casanova. DISCHARGE MEDICATIONS: Amlodipine 5 mg daily, Cozaar 100 mg daily, Lopressor 12.5 mg 2 times a day, DuoNebs p.r.n., Imodium p.r.n. HOSPITAL COURSE: Ms. Hurley is a pleasant 62-year-old lady who was admitted to [facility] on 12/21/2017 following a fall. She was found to have an elevated troponin I, elevated CK level and cervical pain secondary to severe C3/C4 central and right neural foraminal narrowing. Anna Marie gomez refer to Dr. Walker's history and physical note dated 12/22/2017 for further details. She wa s seen by Cardiology and Neurosurgery Services. She had severe/critical C3-C4 central and right neural foraminal narrowing, severe C5-C6 neural gianna inal narrowing due to uncovertebral osteophyte hypertrophy, broad-based central disk osteophyte compl exes compressing the thecal sac at C4-C5, C5-C6 and C6-C7. Neurosurgery service recommended outpatie nt followup with them for further management. They feel that she will likely need surgical intervent ion at some point. In terms of elevated troponin, i.e., Cardiology service felt that this was probably noncardiac origin . She had a nuclear stress test on 12/23/2017, which did not show any reversibility or fixed defect, with left ventricular ejection fraction of 68%. In terms of her lipid profile, during this hospital ization she had triglycerides 39, cholesterol 122, LDL cholesterol 54, HDL cholesterol 60. In terms of rhabdomyolysis, she had elevated CK at the time of admission. It improved to 619 on the day of discharge. She is advised to have her CK level rechecked in 3 days' time. She was also hyponatremic at the time of admission. Review of her home medications showed that she w as on a combination pill of hydrochlorothiazide and losartan. Losartan was continued and hydrochloro thiazide was discontinued. Sodium improved to 131 by 12/25/2017. Because of her fall, she was evaluated by therapy services. She was advised to penitentiary. She is being discharged to [facility] for further management. On 12/25/2017, she had sodium 131, potassium 3.5, creatinine 0.62, AST 155, ALT 103. The transaminit is most likely secondary to rhabdomyolysis since she had a normal total bilirubin and normal alkaline phosphatase, white count 3900, hemoglobin 11.1, and platelet count 124,000. Towards the end of her hospitalization, she had diarrhea. Stool samples were negative for Clostridiu m difficile, Campylobacter antigen, Shiga toxin and no E. coli O157 was isolated at 24 hours. She is advised to follow up on the stool cultures at [facility] for the final report. Many thanks for allowing me to participate in your patient's care. Please feel free to contact me wi th any questions or concerns. DISCHARGE DESTINATION: [facility]. TOTAL AMOUNT OF TIME SPENT COORDINATING THIS DISCHARGE: 33 minutes.
[2017-12-26] MEDS: Sodium Chloride 0.9% 1,000 ML IV SCH (15:51)
[2017-12-27] MEDS ORDERED: Amlodipine 5 MG TAB PO SCH (09:00)
== END 2017-12-26 15:15 | disposition swing bed (61) | DRG 558 ==
LOC: ERS 15:26 → 2SE 19:31
PROVIDERS: ADMIT Hospitalist; ATTEND Hospitalist
DX: M62.82 Rhabdomyolysis (principal); E87.1 Hypo-osmolality and hyponatremia; Z66 Do not resuscitate; Z91.81 History of falling; W01.0XXA Fall on same level from slipping, tripping and stumbling without subsequent striking against object, initial encounter; Y92.9 Unspecified place or not applicable; I10 Essential (primary) hypertension; J44.9 Chronic obstructive pulmonary disease, unspecified; Z86.73 Personal history of transient ischemic attack (TIA), and cerebral infarction without residual deficits; H81.10 Benign paroxysmal vertigo, unspecified ear; M48.02 Spinal stenosis, cervical region
CPT/HCPCS: 36415; 36416; 70450; 72125; 72141; 78452; 80048; 80053; 80061; 82550; 82553; 84484; 85025; 87045; 87046; 87324; 87449; 87899; 90471; 90732; 93005; 93017; 93306; 93798; 96360; 96372; A9500; G0009; G8978-GP-CL; G8979-GP-CJ; G8987-GO-CK; G8988-GO-CI; J0153; J1644; J1650; J2001

== ENCOUNTER 2018-01-24 08:56 | Inpatient (IN) | payer MEDICARE, MEDICAID ==
[2018-01-24 10:02] LABS: #Eosinphils 0.1 thou/uL (0.0-0.7); #Monocytes 0.4 thou/uL (0.11-0.59); #Neutrophils 1.8 thou/uL (1.40-6.50); %Basophils 1.1 % (0.0-1.0); %Eosinophils 2.6 % (0.0-10.0); %Lymphocytes 30.3 % (21.0-51.0); %Monocytes 12.1 % (0.0-10.0); %Neutrophils 53.9 % (42.0-75.0); Hemoglobin 12.6 g/dL (12.0-16.0); Mean Corpuscular HGB CONC 32.4 g/dL (32.0-36.0); Mean Corpuscular Hemoglobin 29.4 pg (27.0-31.0); Mean Corpuscular Volume 90.8 fL (78.0-98.0); Mean Platelet Volume 7.4 fL (7.4-10.4); Platelet Count 144 thou/uL (130-400); RBC Distribution Width 11.9 % (11.5-14.5); Red Blood Cell (RBC) Count 4.28 mill/uL (4.20-5.40); White Blood Cell (WBC) Count 3.4 thou/uL (4.8-10.8)
[2018-01-24 10:23] LABS: ALT (SGPT) 109 U/L (8-55); AST (SGOT) 88 U/L (5-34); Albumin 3.8 g/dL (3.5-5.0); Alkaline Phosphatase 103 U/L (40-150); Anion Gap 12 mmol/L (10-20); BUN (Urea Nitrogen) 13 mg/dL (9.8-20.1); Bilirubin, Total 0.8 mg/dL (0.2-1.2); Calc. Creatinine Clearance 0 mL/min (70-130); Calcium 10.1 mg/dL (7.8-10.44); Carbon Dioxide 25 mmol/L (22-29); Chloride 104 mmol/L (98-107); Estimated GFR-MDRD Greater than 90; Globulin 4.9 g/dL (2.4-3.5); Glucose 102 mg/dL (70-105); Potassium 3.9 mmol/L (3.5-5.1); Protein, Total 8.7 g/dL (6.0-8.3); Sodium 137 mmol/L (136-145)
[2018-01-24] MEDS ORDERED: Promethazine 25 MG TAB PO PRN (17:08)
[2018-01-24] MEDS ORDERED: Ondansetron HCl/PF 4 MG/2 ML Vial IVP PRN (17:08)
[2018-01-24] MEDS ORDERED: diphenhydrAMINE 25 MG CAP PO PRN (17:08)
[2018-01-24] MEDS ORDERED: diphenhydrAMINE 50 MG/ML VIAL IVP PRN (17:08)
[2018-01-24] MEDS ORDERED: Milk Of Magnesia 30 ML UDCUP PO PRN (17:08)
[2018-01-24] MEDS ORDERED: Acetaminophen/Codeine 30-300mg Tablet PO PRN ×2 (17:08)
[2018-01-24] MEDS ORDERED: Mag-Al 1200 mg/1200 mg/30 ML UDCUP PO PRN (17:08)
[2018-01-24] MEDS ORDERED: Zolpidem Tartrate 5 MG TAB PO PRN (17:08)
[2018-01-24] MEDS ORDERED: Acetaminophen 650 MG Suppository PR PRN (17:08)
[2018-01-24] MEDS ORDERED: Bisacodyl 10 MG SUPP PR PRN (17:08)
[2018-01-24] MEDS ORDERED: Promethazine HCl 25 MG/ML VIAL IM PRN (17:08)
[2018-01-24] MEDS ORDERED: Thrombin 5000 UNITS/5 ML VIAL ONE (17:15)
[2018-01-24] MEDS ORDERED: Sodium Chloride 0.9% 0 ML ONE (17:15)
--- NOTE | 2018-01-24 17:37 | HP ---
DATE OF ADMISSION: 01/24/2018 HISTORY OF PRESENT ILLNESS: Ms. Hurley is a 62-year-old female who was brought to [facility] Department today for a fall/worsening in balance. The patient was last seen in our ED i december. She was seen and worked up for cardiac issues as well as some imbalance. One of my colleagues, Rah Clayton saw her to evaluate for cervical stenosis with myelopathy. At that time , it was decided that she was going to follow up in the office for scheduled surgery. Since that vis it, Ms. Hurley is in rehab for a couple of weeks, trying to get stronger for surgery. However, last Thursday, she had a fall that she caught herself on the wall and her daughter helped sit her down. She states that she did not hit her head or anything else, but since then, she has been unable to get he rself up and out of her bed, use her walker like she normally has. She states that she is unable to grasp anything with her hands. Both hands are numb and she has numbness that radiates up the back of both arms to her shoulders. The patient denies any headache, neck pain or back pain. She states th at she has been able to get around well. She has a history of stroke, which affected the left side o f her body; however, she has been able to recover pretty significantly since that time. The patient denies any bowel or bladder dysfunction. No fever or chills. REVIEW OF SYSTEMS: The patient denies any fever or chills, change in vision or changes in hearing. Denies any difficulty swallowing or sore throat. She denies any abdominal pain, palpitations or ches t pain. No nausea or vomiting. No diarrhea or constipation. She states that she is off balance and has no feelings in her hands and the back of both arms. PAST MEDICAL HISTORY: Hypertension, COPD, cardiovascular accident, multiple TIAs, chronic pain, migr aines, benign paroxysmal vertigo, bradycardia. PAST SURGICAL HISTORY: Appendectomy. SOCIAL HISTORY: The patient denies any alcohol, smoking or social drug use. She lives with her da hter in [place] and is independent in most activities of daily living. FAMILY HISTORY: Positive for mother and father with hypertension and coronary artery disease. PHYSICAL EXAMINATION: GENERAL: The patient is alert and oriented to person, place and time. She is resting in her hospita l bed. As I enter, she asks to be repositioned because her bottom is sore. She is afebrile, normote nsive, nontoxic appearing. HEENT: Head is normocephalic, atraumatic. Pupils are equal, round and reactive to light. Extraocul ar movements are intact. Hearing is intact. Moist mucous membranes. RESPIRATORY: Normal work of breathing in room air. CARDIAC: Regular rate and rhythm. Normal S1, S2. EXTREMITIES: The patient is able to move all four extremities. She has good strength in the bilater al lower extremities, hip flexion and extension, knee flexion and extension, dorsi and plantar flexio n. She denies any sensory deficits in both her lower extremities. Upper extremities, the patient brooks s good strength in her deltoids. She has right greater than left weakness in biceps, triceps, wrist extension, finger extension. She has poor director of diversity and inclusion strength bilaterally. She has decreased sensation on bilateral backs of her hands or arms. NEUROLOGIC: The patient is alert and oriented to person, place and time. Speech is spontaneous and fluent. Normal fund of knowledge. Cranial nerves II-XII are intact. She has decreased fine motor f unction in bilateral upper extremities, worsening balance and decrease in strength in the upper extre mities. IMAGING: We have an MRI of the cervical spine from 12/21/2017. She has severe C3-C4 central and rig ht neural foraminal narrowing as well as broad-based central disk osteophyte complexes compressing th e thecal sac at C4-C5, C5-C6 and C6-C7 to a lesser degree. There is also severe C5-C6 neural foramin al narrowing due to uncomfortable osteophytes hypertrophy. ASSESSMENT AND PLAN: Ms. Hurley has worsening cervical stenosis with myelopathy. She has been in re hab for multiple weeks since her admission a month ago and has had a significant decline in her funct ion, balance and use of her upper extremities. Surgical intervention in the form of an ACDF is likel y. We are obtaining new MRI of the cervical spine. We will call Anesthesia to see if she can get cl eared for the procedure.
--- NOTE | 2018-01-24 17:55 | MRI ---
MRI CERVICAL SPINE WITHOUT CONTRAST: HISTORY: Increased difficulty using the patient's hands and arms. 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 COMPARISON: 12/21/2017 TECHNIQUE: MRI cervical spine is performed without intravenous Gadolinium administration. Multisequential, mult iplanar imaging is performed. FINDINGS: Sagittal gradient echo sequence does not demonstrate any evidence of cord hemorrhage. There is appropriate T1 marrow signal intensity of the cervical vertebrae. Vertebral body height is maintained. There is no evidence of fracture. No significant STIR hyperintensity to suggest vertebr al body edema or ligamentous injury. Evaluation is limited by motion degradation. [id number], there appears to be T2 and STIR hyperin tensity involving the cervical cord, at the C3-C4 level. The remainder of the cervical cord has a no rmal size and signal intensity. There appear to be nonspecific T2 and STIR hyperintensities involvin g the mid brain and maurice, incompletely evaluated. There is no significant spondylolisthesis. Minimal anterolisthesis of C4 upon C5 is redemonstrated. C2-C3: No significant central canal stenosis. Mild right foraminal narrowing. The left neural fora men is patent. C3-C4: There is a broad-based disk osteophyte complex, which results in severe central canal stenosi s. Moderate bilateral foraminal narrowing due to degenerative changes of the uncovertebral joint. T here is T2 hyperintensity at the left aspect of the cord. C4-C5: There is a central disk osteophyte complex with moderate central canal stenosis. There is de formity of cervical cord. Questionable signal abnormality in the cervical cord. Mild to moderate ri ght and mild left foraminal narrowing due to degenerative changes of the uncovertebral joint. C5-C6: There is a broad-based disk osteophyte complex with a central/left paracentral disk protrusio n. There is stable deformity of the left hemicord. Stable moderate central canal stenosis. Degener ative changes in the bilateral uncovertebral joints results in moderate to severe bilateral foraminal narrowing. C6-C7: Broad-based disk osteophyte complex with mild central canal stenosis. Moderate right and mil d to moderate left foraminal narrowing. C7-T1: No high grade central canal stenosis. No high grade foraminal narrowing. Stable central dis k bulge. IMPRESSION: 1. Stable degenerative changes of the cervical spine. There is significant central canal stenosis a t multiple levels, as described above. There is abnormal signal intensity in the cervical cord at C3 -C4. 2. Questionable abnormal signal intensity in the cervical cord, at C4-C5. POS: PPP
--- NOTE | 2018-01-24 19:05 | CON ---
DATE OF CONSULTATION: 01/24/2018 PRIMARY CARE PHYSICIAN: Demarcus Serrato DO REQUESTING PHYSICIAN: Veronica Browning MD TIME OF SERVICE: 1700. REASON FOR CONSULTATION: Medical management. HISTORY OF PRESENT ILLNESS: Ms. Hurley is a 62-year-old -[place] female with a history of hy pertension and reactive airway disease particularly during upper respiratory infections, cerebrovascu lar disease with 8 strokes in the past, chronic pain, migraines, vertigo, and bradycardia. The patient was admitted here until 12/26/2017 and was subsequently discharged to [facility] for rehabilitation, where she stayed until 01/14/2018. At that time, she was still having some numbness in her leg, but was able to ambulate. Since being at home the last 10 days, she has g neelam progressively weaker. Yesterday, she was so weak she could not bulk picker or grab her walker to b ilateral upper extremities. She is having to have assistance getting around her house on and off the commode, etc. She had to come to Emergency Department for evaluation today after falling 2 days ago against the wal l. Workup in the Emergency Department revealed her to complain of upper extremity numbness and weakness. Labs were otherwise unremarkable. Neurosurgery was consulted and has agreed to admit the patient. MRI was requested and we were called for medical management consult. PAST MEDICAL HISTORY: The patient has a history of hypertension, possible COPD, cerebrovascular dise ase with strokes in the past with chronic pain, migraines, BPV, and bradycardia. PAST SURGICAL HISTORY: Appendectomy in the past. HOME MEDICATIONS: Unknown. She takes tramadol 50 mg every 4 hours as needed for pain and takes a "s mall white fluid pill." Recent medicine list shows her to be on losartan/HCTZ 10/25 daily. The ER l isted metoprolol 12.5 b.i.d., Cozaar 100 mg a day, and amlodipine 5 mg a day. I am not clear whether she is taking any of these. ALLERGIES: CEFDINIR. FAMILY HISTORY: Negative for clotting or bleeding disorder. No immune dysfunction. SOCIAL HISTORY: Negative for habits x3. REVIEW OF SYSTEMS: Performed and is negative for all systems except as per HPI. PHYSICAL EXAMINATION: VITAL SIGNS: Temperature 98.6, pulse 71, blood pressure 115/67, respiratory rate 17, saturating 100% on room air. GENERAL: She is awake. She is alert. She is oriented x3. She is a thin female, a ppears older than her stated age. She appears to be in no acute distress. HEENT: Normocephalic and atraumatic. Pupils equal, round, reactive to light bilaterally. Mucous me mbranes are moist. No visible lesion. No thrush. NECK: Supple. She had no thyromegaly, JVD, or thyromegaly. Normal carotid upstroke. I do not appr eciate a bruit. LUNGS: Clear anteriorly. She has no wheezes, rales, or rhonchi. She has good air movement with sym metric chest excursion. There are no basilar crackles in the back. CARDIOVASCULAR: She has normal S1, S2. No S3 or S4. No audible murmurs. ABDOMEN: Soft, nontender, nondistended. No mass or organomegaly. Good bowel sounds in all 4 quadra nts. EXTREMITIES: No cyanosis, no clubbing. She has got no edema. SKIN: Warm, moist, and well perfused. She has no rashes or lesions. MUSCULOSKELETAL: Normal to inspection. Large joints appear normal. There is no evidence of inflamm ation or palpable effusion. NEUROLOGIC: Cranial nerves II-XII are grossly intact. She has a 2 to 3/5 strength in her bilateral upper extremities and 2/5 traffic technician strength. Bilateral lower extremity proximal muscles are approximatel y 4/5 and distal lower extremities are 3/5. Deep tendon reflexes in the patellar tendons are normal. LABORATORY DATA: Sodium 133, potassium 3.9, chloride 104, bicarbonate 25, BUN 13, creatinine 0.70, g lucose 102, calcium 10.1. Liver function showed an AST of 88 and ALT of 109, but otherwise liver function is normal. CBC showed a white count of 3.4, hemoglobin is 12.6, hematocrit of 38.8, and platelet count is 144,00 0. She has a normal differential. Her MRI showed C3-C4 and C4-C5 stenosis. ASSESSMENT AND PLAN: 1. Cervical spinal stenosis with neurologic deficits with bilateral upper extremity and bilateral lo wer extremity weakness. The patient is to go to the operating room tonight for decompression. We brooks ve been asked to consult for medical management. 2. Hypertension. Continue to monitor. She has not taken any blood pressure medicine in some time. She does have a history of bradycardia, so we will hold off Lopressor. We would add amlodipine as n eeded. 3. History of chronic obstructive pulmonary disease. We will make nebulizer treatments available. She is feeling short of breath. 3. History of benign paroxysmal positional vertigo. No current symptoms. 4. History of bradycardia without current symptoms. 5. Migraine headaches. Thank you very much for the consult. We will follow along with you.
--- NOTE | 2018-01-24 19:27 | PRG ---
DATE OF SERVICE: 01/24/2018 I personally interviewed and examined the patient, reviewed records and imaging and agree with docume ntation of Melvina Campbell PA-C dated 01/24/2018. Briefly, Wilda Hurley is a patient consulted to Dr. Palencia in December for worsening balance and hand dysfunction. 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 She was getting medically cleared as well. Las week, she noticed some neurological deterioration. She lost her balance and slipped to her walker on Thursday when she was being helped by one of her daughters. Yesterday, things were even worse than they were Thursday with burning and numbness in the forearms and hands, finger in coordination, hand we akness, and loss of balance. She has been unsafe on her feet for the last 2-1/2 days. She has been unable to hold a glass of water for at least 2 days. She was brought to our emergency department at 9:00 a.m. this morning, or thereabouts. After two full meals, including breakfast and lunch, Neurosu aria was consulted. Because of the neurological deterioration and objective decline in neurological function from her December examination, we felt one of her falls may have resulted in worsening of the spinal cord dysfunction and ordered a new MRI scan. The results are back now and indeed there is increased stenosis, especially at C3-4 and C4-5. There is T2 signal change in the cord and these ar e different from what they were before. I saw Ms. Hurley in our emergency department. Before MRI scan, she was given a full dinner. This is at 4:30 p.m. MRI scan finished at 4:53 p.m. In our emergency department room, she is awake and michelet rt. She tells me the exact story detailed above. When I examined her hands, her intrinsic hand musc les are extremely weak. Dorsal interossei are 3+/5. The finger extensors are 4-/5. Her finger flex ors are actually stronger than her extensors and the freight car cleaner delta system strength is better than the hand intrinsics . She has a nondermatomal sensory loss in the mid arm to the forearm to the hand. She does not have any radicular pains radiating into the arms. Relative to the hands, the legs have fairly preserved neurological function, although reflexes are brisk and there are beats of clonus on either side. I reviewed MR imaging and compared it to December examination. Indeed, there is a T2 signal change within the substance of the cord, especially on the left hemicord. There is disk disease at C3-4 and C4-5 as well as ligamentous hypertrophy that are causing this. Some of the posterior longitudinal l igament are pushed backwards by the disk material leaving behind the C3, C4, and C5 vertebral bodies. I had a long discussion with Mr. Johnson about her neurological deterioration. She wants to regain hussain rological function. I offered her surgical decompression to achieve that. I do not think, we will g et back to normal neurological function, but I think we have a good chance of improving her situation . Given the fact that her more abrupt neurological deterioration started 48 hours ago, I do not thin k that surgery now or tomorrow would have any significant difference in outcome. As she has had thre e large meals in our emergency department, the most recent of which was 4:30 p.m., it is probably saf er to do this operation tomorrow after she has had a full course of being n.p.o. after midnight. We have a full surgical schedule tomorrow which she will be added on to follow. INFORMED CONSENT: I discussed indications, risks, benefits, and alternatives to surgery. The risks I discussed included, but were not limited to, bleeding, infection, CSF leak, damage to the trachea, esophagus, spinal cords, vocal cords, swallowing mechanism, carotid artery, jugular vein, and cardiop ulmonary complications of anesthesia including . She understands all the risks. She wants to p roceed. We will make arrangements for her to be admitted, to be kept n.p.o. after midnight, and to b e prepped for surgery tomorrow to follow her other cases. We will start with an ACDF at C3-4 and C4- 5. If we have excellent decompression of the thecal sac and large amount of disk material removed wi th good ligamentotaxis from distraction, then we may finish with an ACDF. If we do not feel we have adequate decompression, we will proceed with a posterior decompression from the bottom of C2 all the way through the top of C5. We will include C2 in the posterior aspect of the fusion if we proceed in that direction. All the surgery has been explained to her. All her questions were answered, and I am about to get on the phone to talk to her daughters. I spent 70 minutes in the Emergency department myself.
[2018-01-24] MEDS: Sodium Chloride 0.9% 1,000 ML IV SCH (20:25)
[2018-01-24 20:46] VITALS: BMI 23.6
[2018-01-24] MEDS ORDERED: Clindamycin/D5W 900 MG in Premix Bag 1 BAG IVPB SCH (22:00)
[2018-01-25] MEDS ORDERED: traMADol HCl 50 MG TAB PO PRN ×2 (00:29→20:04)
--- NOTE | 2018-01-25 07:18 | PRG ---
DATE OF SERVICE: 01/25/2018 I saw Ms. Hurley in her hospital room this morning. She has been n.p.o. since midnight. She complains of some neck discomfort. A cervical collar is not in place yet. Overnight, the vitals have been stable. Neurological function is stable from yesterday. There is still significant intrinsic hand weakness and some nondermatomal numbness in the forearms. She is off balance, she is unsafe to walk. Our plan is for operative intervention today to decompress her cervical cord and preserve what function she has. I suspect she will regain some, but not all of her neurologic function after decompression. Consent reviewed and surgical plan updated to laminectomy with fusion. Discussed. 15 min MTDD
[2018-01-25 08:49] LABS: INR-International Normal Ratio 1.1; PTT 32.6 SEC (22.9-36.1); Prothrombin Time 14.2 SEC (12.0-14.7)
[2018-01-25] MEDS ORDERED: Furosemide 20 MG TAB PO SCH (09:00)
[2018-01-25] MEDS: Pantoprazole 40 MG VIAL IVP SCH (09:17)
[2018-01-25] MEDS: Dexamethasone 10 MG in Sodium Chloride 0.9% 50 ML IVPB SCH (09:17)
[2018-01-25] MEDS: Sodium Chloride 0.9% 1,000 ML IV SCH (09:58)
--- NOTE | 2018-01-25 13:53 | PDOC.PN ---
- Subjective Encounter Start Date: 01/25/18 Encounter Start Time: 13:40 Subjective: f/u for cervical spinal stenosis with ACDF C-spine and consult for med mgmt - Objective MAR Reviewed: Yes Vital Signs & Weight: Vital Signs (12 hours) Temp Pulse Resp BP Pulse Ox 01/25/18 08:05 98.4 F 64 18 149/85 H 100 01/25/18 04:34 98.3 F 62 18 122/68 100 Weight Weight 138 lb I&O: 01/24/18 01/25/18 01/26/18 06:59 06:59 06:59 Intake Total 1300 Balance 1300 Result Diagrams: 01/24/18 09:49 01/26/18 05:13 Radiology Reviewed by me: Yes (MRI C-spine - multi-level DJD, + central canal stenosis) Phys Exam - Physical Examination Constitutional: NAD HEENT: PERRLA, sclera anicteric, oral pharynx no lesions Neck: no nodes, no JVD, supple Respiratory: no wheezing, no rales, no rhonchi, clear to auscultation bilateral Cardiovascular: RRR, no significant murmur, no rub, gallop Gastrointestinal: soft, non-tender, no distention, positive bowel sounds Musculoskeletal: no edema, pulses present Neurological: moves all 4 limbs Psychiatric: normal affect, A&O x 3 Skin: normal turgor, cap refill <2 seconds Dx/Plan (1) HTN (hypertension) Code(s): I10 - ESSENTIAL (PRIMARY) HYPERTENSION Status: Chronic Qualifiers: Hypertension type: essential hypertension Qualified Code(s): I10 - Essential (primary) hypertension Comment: Stable, continue home BP regimen, monitor trend (2) COPD (chronic obstructive pulmonary disease) Status: Chronic Comment: Duonebs prn, O2 prn, Incentive spirometer post-op (3) Fall Code(s): W19.XXXA - UNSPECIFIED FALL, INITIAL ENCOUNTER Status: Acute Comment: PT/OT for functional assessment, likely will benefit from rehab/SNF care on d/c (4) Cervical spinal stenosis Code(s): M48.02 - SPINAL STENOSIS, CERVICAL REGION Status: Chronic Comment: Plan for ACDF today - Plan continue antibiotics, PT/OT, geriatric social work professor, incentive spirometry, DVT proph w/ SCDs Continue home Lasix -: Pain control -: Add Duonebs q6h prn -: PT for functional assessment -: SNF/Rehab options * AM lab: CMP
[2018-01-25] MEDS ORDERED: Clindamycin/D5W 900 MG in Premix Bag 1 BAG IVPB SCH (14:00)
[2018-01-25] MEDS ORDERED: Labetalol HCl 100 MG/20 ML VIAL ONE (14:49)
[2018-01-25] MEDS ORDERED: PHENYLEPHRINE-NS 100 MCG/ML 10 ML SYRINGE ONE (14:49)
[2018-01-25] MEDS ORDERED: Dexamethasone 20 MG/5 ML VIAL ONE (14:49)
[2018-01-25] MEDS ORDERED: PROPOFOL 200 MG/20 ML VIAL ONE (14:49)
[2018-01-25] MEDS ORDERED: Lidocaine 1% PF 5 ML VIAL ONE (14:49)
[2018-01-25] MEDS ORDERED: Ondansetron HCl/PF 4 MG/2 ML Vial ONE (14:49)
[2018-01-25] MEDS ORDERED: Bacitracin Zinc Ointment 30 gm TUBE ONE (16:43)
[2018-01-25] MEDS ORDERED: Thrombin 5000 UNITS/5 ML VIAL ONE (16:43)
[2018-01-25] MEDS ORDERED: Sodium Chloride 0.9% 0 ML ONE (16:43)
[2018-01-25] MEDS ORDERED: Clindamycin/D5W 900 mg/50 ml Premix Bag ONE (16:47)
[2018-01-25] MEDS ORDERED: Levofloxacin 500 mg/D5W 100 ml Premix Bag ONE (17:32)
[2018-01-25] MEDS ORDERED: Dexmedetomidine 200 MCG/2 ML VIAL ONE (17:42)
[2018-01-25] MEDS ORDERED: Sodium Chloride 0.9% 20 ML ONE (17:47)
[2018-01-25] MEDS ORDERED: Bupivacaine HCl 0.5%/Epinephrine 1:200,000/PF 30 ml Vial ONE (19:20)
[2018-01-25] MEDS ORDERED: SUGAMMADEX SODIUM 200 MG/2 ML VIAL ONE (20:02)
[2018-01-25] MEDS ORDERED: Fentanyl 100 MCG/2 ML VIAL ONE ×3 (20:06→20:38)
[2018-01-25] MEDS ORDERED: Promethazine HCl 25 MG/ML VIAL SLOW IVP PRN (20:19)
[2018-01-25] MEDS ORDERED: Promethazine HCl 25 MG/ML VIAL IM PRN (20:19)
[2018-01-25] MEDS ORDERED: Ondansetron HCl/PF 4 MG/2 ML Vial IVP PRN (20:19)
[2018-01-25] MEDS: Gabapentin 300 MG CAP PO SCH (21:48)
[2018-01-25] MEDS: tiZANidine HCl 4 MG TAB PO PRN (23:24)
[2018-01-26] MEDS ORDERED: Clindamycin/D5W 900 mg/50 ml Premix Bag ONE (01:09)
[2018-01-26] MEDS: Clindamycin/D5W 900 MG in Premix Bag 1 BAG IVPB SCH ×3 (01:12→18:43)
--- NOTE | 2018-01-26 01:15 | OP ---
DATE OF PROCEDURE: 01/25/2018 SURGEON: Veronica Browning M.D. MEDIA TRAFFIC MANAGER: Melvina Campbell PA-C. PREOPERATIVE INDICATION: Prevent further neurological deterioration. PREOPERATIVE DIAGNOSES: Cervical spondylitic myelopathy with spinal cord compression and T2 signal c hange in the spinal cord. 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 OPERATIVE PROCEDURE: Decompressive laminectomy with medial facetectomy, foraminotomy at C3, C4, C5, C6, posterolateral arthrodesis C3-C4, C4-C5, C5-C6, posterolateral instrumentation and the lateral ma sses with screws and rods C3 through C6, local morselized autograft, morselized allograft. PREOPERATIVE MEDICATION: Clindamycin 900 mg IV and vancomycin 500 mg IV. DRAIN NUMBER. 1. DRAIN TYPE: 10-Ukrainian Godwin. OPERATIVE DICTATION: As follows, patient was brought to the operating room. Keeping the neck in nor mal anatomic alignment, general endotracheal anesthesia was induced. The patient was positioned pron e on gel filled chest rolls with a Clear shante head automatic sawyer attached to the patient's head. The h ead was immobilized with the Clear attachment for the operating table. Hair was removed from the back of the neck and head with electric clippers. A lateral fluoro radiograph was used to plan our i ncision. The neck was sterilely prepped and draped and we opened our midline incision with a 10-blad e knife. We controlled bleeding with bipolar and monopolar cautery. We used monopolar cautery to di ssect through subcutaneous tissues to the ligamentum nuchae. We incised the ligament and reflected t cuong paraspinal muscles off the spinous process and lamina from C2 through C6. The self-retaining retr actor was placed. A lateral fluoro radiograph confirmed the levels, upon which were operating. Toro vargas used a high-speed drill to thin the lamina of C3, C4, C5 on either side. Using a 1 mm Kerrison r ongeur, we freed the lamina on either side and cut through yellow ligament. At the single unit, we r emoved the spinous process and lamina of C3, C4, and C5. That bone was placed on the back table wher e it was cleaned of soft tissue attachments, morselized, and added to demineralized bone matrix as ou r posterolateral fusion substrate. With lamina out of the way, we turned our attention to the C6 lamina. We thinned it with a high-speed drill and used the Kerrison rongeur to remove the superio r 7 mm of the lamina of C6 and we ensured the foramen was wide open. We widened our laminectomy defe ct with Kerrison rongeurs until we were lateral to the thecal sac. We performed small foraminotomies over the exiting nerve roots to ensure they were well decompressed. We then turned our attention to instrumentation. Using a high-speed drill, we placed an entry point in the lateral mass and the mid portion of the lat eral mass of C3, C4, C5, and C6. With a high-speed drill, we drilled to 12 mm deep. We probed the t rajectories and found them completely encased in bone. We placed 12-mm lateral mass screws into the lateral masses from C3 through C7. We are aiming the superiorly and laterally in the usual fashion. A lateral fluoro radiograph confirmed adequate positioning of our instrumentation. We irrigated shipwright helper iously with bacitracin irrigation. We brought rods down in the screw heads. We tightened caps down over the rods using a [id number] mechanism, we ensured adequate tightness. We then decort icated the lateral aspect of the lateral masses from C3 through C6 and over the decorticated bone, we left demineralized bone matrix, morselized autograft as are posterolateral fusion substrate. We rosa neled the drain posteriorly and inferiorly through a separate stab incision. We closed the wound in anatomic layers and we applied the sterile dressing. This was a clean case and no contamination.
[2018-01-26] MEDS: Sodium Chloride 0.9% 1,000 ML IV SCH ×3 (05:47→23:22)
[2018-01-26 06:03] LABS: ALT (SGPT) 83 U/L (8-55); AST (SGOT) 58 U/L (5-34); Albumin 3.3 g/dL (3.5-5.0); Alkaline Phosphatase 88 U/L (40-150); Anion Gap 14 mmol/L (10-20); BUN (Urea Nitrogen) 15 mg/dL (9.8-20.1); Bilirubin, Total 0.4 mg/dL (0.2-1.2); Calc. Creatinine Clearance 69 mL/min (70-130); Calcium 9.3 mg/dL (7.8-10.44); Carbon Dioxide 20 mmol/L (22-29); Chloride 102 mmol/L (98-107); Estimated GFR-MDRD 81; Globulin 4.4 g/dL (2.4-3.5); Glucose 188 mg/dL (70-105); Potassium 3.7 mmol/L (3.5-5.1); Protein, Total 7.7 g/dL (6.0-8.3); Sodium 132 mmol/L (136-145)
--- NOTE | 2018-01-26 07:02 | PRG ---
DATE OF SERVICE: 01/26/2018 I saw Wilda Hurley in her hospital room this morning. She is 1 day out from a posterior decompressio n fusion of the cervical spine from C3-6. She had significant cord compression prior to surgery and that decompressed nicely in the operating room. Ms. Hurley tells me that her hands feel better than they did before surgery, but she cannot quite get the motor strength back as fast as the sensation. Overnight the vital signs have been reasonably stable. Blood pressure was up to 180 at one point, bu t better controlled when she is resting. On examination, there is still significant hand intrinsic weakness, finger extensor weakness, triceps weakness in both upper extremities, a little bit worse on the left than the right. The subjective s ensation in the forearms and hands has improved. She can appreciate light touch better than she did before surgery. Drain output is not yet recorded on the computer. Today Ms. Hurley will be wearing a C-collar when she is up and working with therapy and out of bed. When she is resting in bed or eating or showering she does not need the collar on. We will begin the process of transfer to inpatient rehabilitation, which she will need to improve as much as she can.
[2018-01-26] MEDS: Dexamethasone 10 MG in Sodium Chloride 0.9% 50 ML IVPB SCH (09:35)
[2018-01-26] MEDS: Furosemide 20 MG TAB PO SCH (09:36)
[2018-01-26] MEDS: Pantoprazole 40 MG VIAL IVP SCH (09:36)
[2018-01-26] MEDS: Gabapentin 300 MG CAP PO SCH ×3 (09:36→22:12)
[2018-01-26] MEDS: tiZANidine HCl 4 MG TAB PO PRN (16:36)
--- NOTE | 2018-01-26 17:19 | PDOC.PN ---
- Subjective Encounter Start Date: 01/26/18 Encounter Start Time: 17:25 Subjective: f/u for HTN, COPD and s/p ACDF POD #1. Some pain with movement -: Wearing C-collar and tolerating - Objective MAR Reviewed: Yes Vital Signs & Weight: Vital Signs (12 hours) Pulse Ox 01/26/18 08:20 98 Weight Weight 138 lb I&O: 01/25/18 01/26/18 01/27/18 06:59 06:59 06:59 Intake Total 1300 1850 Output Total 150 Balance 1300 1700 Result Diagrams: 01/24/18 09:49 01/26/18 05:13 Phys Exam - Physical Examination Constitutional: NAD HEENT: PERRLA, sclera anicteric, oral pharynx no lesions + C-collar Neck: no nodes, no JVD, supple Respiratory: no wheezing, no rales, no rhonchi, clear to auscultation bilateral S1, S2 Cardiovascular: RRR, no significant murmur, no rub, gallop Gastrointestinal: soft, non-tender, no distention, positive bowel sounds Musculoskeletal: no edema, pulses present Neurological: normal sensation, moves all 4 limbs Psychiatric: A&O x 3 Skin: normal turgor, cap refill <2 seconds Dx/Plan (1) HTN (hypertension) Code(s): I10 - ESSENTIAL (PRIMARY) HYPERTENSION Status: Chronic Qualifiers: Hypertension type: essential hypertension Qualified Code(s): I10 - Essential (primary) hypertension Comment: Stable, continue home BP regimen, monitor trend (2) COPD (chronic obstructive pulmonary disease) Status: Chronic Comment: Duonebs prn, O2 prn, Incentive spirometer post-op (3) Fall Code(s): W19.XXXA - UNSPECIFIED FALL, INITIAL ENCOUNTER Status: Acute Comment: PT/OT for functional assessment, likely will benefit from rehab/SNF care on d/c (4) Cervical spinal stenosis Code(s): M48.02 - SPINAL STENOSIS, CERVICAL REGION Status: Chronic Comment: s/p ACDF POD #1, pain control, PT/OT, C-collar, inpt rehab pending - Plan PT/OT, social science teacher, incentive spirometry, out of bed/ambulate, DVT proph w/ SCDs Stable currently -: continue pulmonary supportive care -: continue IVF's another 24h -: OOB with PT -: Inpt rehab referral * .
[2018-01-26] MEDS: Acetaminophen 325 MG TAB PO PRN (18:43)
[2018-01-26] MEDS ORDERED: Sodium Chloride 0.9% 250 ML 250 ML IVPB SCH (21:00)
[2018-01-26] MEDS ORDERED: Sodium Chloride 0.9% 1,000 ML IV SCH (23:30)
[2018-01-27] MEDS: Clindamycin/D5W 900 MG in Premix Bag 1 BAG IVPB SCH ×3 (01:01→16:51)
[2018-01-27] MEDS: Sodium Chloride 0.9% 1,000 ML IV SCH ×2 (04:38→17:05)
[2018-01-27] MEDS: Acetaminophen 325 MG TAB PO PRN ×2 (04:41→08:01)
[2018-01-27 06:42] LABS: Anion Gap 11 mmol/L (10-20); BUN (Urea Nitrogen) 25 mg/dL (9.8-20.1); Calc. Creatinine Clearance 61 mL/min (70-130); Calcium 8.6 mg/dL (7.8-10.44); Carbon Dioxide 20 mmol/L (22-29); Chloride 105 mmol/L (98-107); Estimated GFR-MDRD 71; Glucose 109 mg/dL (70-105); Potassium 3.7 mmol/L (3.5-5.1); Sodium 132 mmol/L (136-145)
[2018-01-27 06:59] LABS: Band 2 % (5-11); Hypochromia SLIGHT = 6-15 cells (100X) (0-5/hpf); Lymphocytes 26 % (21-51); MDiff Complete? YES; Mean Corpuscular HGB CONC 32.5 g/dL (32.0-36.0); Mean Corpuscular Hemoglobin 29.6 pg (27.0-31.0); Mean Corpuscular Volume 91.3 fL (78.0-98.0); Monocytes 12 % (0-10); Neutrophil 60 % (42-75); PLT Morphology Comment Appears Adequate; Platelet Count 140 thou/uL (130-400); RBC Distribution Width 12.2 % (11.5-14.5); Red Blood Cell (RBC) Count 3.72 mill/uL (4.20-5.40); White Blood Cell (WBC) Count 8.5 thou/uL (4.8-10.8)
[2018-01-27] MEDS: Gabapentin 300 MG CAP PO SCH ×2 (08:01→17:05)
[2018-01-27] MEDS: Pantoprazole 40 MG VIAL IVP SCH (08:01)
[2018-01-27] MEDS: Furosemide 20 MG TAB PO SCH (08:01)
[2018-01-27] MEDS: Dexamethasone 10 MG in Sodium Chloride 0.9% 50 ML IVPB SCH (10:55)
[2018-01-27] MEDS: tiZANidine HCl 4 MG TAB PO PRN (11:57)
[2018-01-27 16:21] VITALS: BP 96/59; TEMP 98.6
--- NOTE | 2018-01-27 21:37 | DIS ---
DATE OF ADMISSION: 01/24/2018 DATE OF DISCHARGE: 01/27/2018 DISCHARGE DIAGNOSES: 1. Hypertension, stable. 2. Chronic obstructive pulmonary disease, stable. 3. Status post fall. 4. Cervical spinal stenosis with myelopathy, status post decompressive laminectomy with medial facet ectomy, foraminotomy at C3 through C6 with posterior lateral arthrodesis C3 through C6. PRIMARY SERVICE ATTENDING: Dr. Browning. [facility] inpatient for medical management. PERTINENT LABORATORY AND X-RAY FINDINGS: Sodium ranged between 130 to 137. AST ranged between 58-88 , ALT ranged between 83-109. Serum cortisol level 1. CBC: White blood cell count ranging between 3 .4-8.5, hemoglobin ranged between 11.0-12.6. MRI of cervical spine dated 01/24/2018 showed degenerat donnell changes of cervical spine with significant central canal stenosis at multiple levels. Please see dictated report for full details. HOSPITAL COURSE: The patient was initially admitted after presenting with cervical stenosis with ass ociated myelopathy undergoing anterior cervical diskectomy and fusion of the cervical spine as stated previously. The patient was managed postoperatively and continued on regular outpatient blood press ure regimen. The patient also underwent general evaluation by physical and occupational therapy and deemed an appropriate candidate for ongoing inpatient rehabilitation with physical and occupational t herapy. The patient overall remained clinically stable postoperatively, maintaining regular oral int bryn. Pain control has been adequate with oral regimen. The patient overall clinically stable and re tamanna for discharge 01/27/2018. Of exam the patient at the time of discharge with disposition plans di scussed with the patient. The patient is ready for discharge. DISCHARGE MEDICATIONS: 1. Acetaminophen/codeine 300/30 mg 2 tabs p.o. q.3-4h. p.r.n. pain. 2. Lasix 20 mg p.o. daily. 3. Neurontin 300 mg p.o. t.i.d. 4. Protonix 40 mg p.o. daily. 5. Zanaflex 4 mg p.o. q.6 hours p.r.n. 6. Ultram 50 mg q.4 hours p.r.n. pain. FOLLOWUP: Patient will follow up with Dr. Alexis Serrato with the primary care provider after disch arge for inpatient rehabilitation. The patient will follow up with Dr. Browning with Neurosurgical service. CONDITION ON DISCHARGE: Fair. ACTIVITY: Rolling walker with standby assistance. Fall risk precautions. DIET: Regular. CODE STATUS: Full. DISPOSITION: Discharged to [facility] inpatient rehabilitation on 01/27/2018.
--- NOTE | 2018-01-30 13:41 | EKG ---
Test Reason : NUMBNESS Blood Pressure : / mmHG Vent. Rate : 063 BPM Atrial Rate : 063 BPM P-R Int : 164 ms QRS Dur : 076 ms QT Int : 392 ms P-R-T Axes : 114 -12 041 degrees QTc Int : 401 ms Normal sinus rhythm Normal ECG Confirmed by SALLY ESPINOZA DO ([id number]), offline editor SERENE RODRIGUEZ ([id number]) on 01/30/2018 1:41:30 PM Referred By: Confirmed By:SALLY ESPINOZA DO
== END 2018-01-27 17:15 | DRG 472 ==
LOC: ERS 08:56 → SDC 17:56 → SURG B 18:46 → OBSVTOIN 18:46
PROVIDERS: ADMIT Neurological Surgery; ATTEND Neurological Surgery
PROC: 0RG20AJ Fusion of 2 or more Cervical Vertebral Joints with Interbody Fusion Device, Posterior Approach, Anterior Column, Open Approach (ICD-10-PCS; principal; 2018-01-25)
DX: M48.02 Spinal stenosis, cervical region (principal); M50.01 Cervical disc disorder with myelopathy, high cervical region; M50.021 Cervical disc disorder at C4-C5 level with myelopathy; M50.022 Cervical disc disorder at C5-C6 level with myelopathy; I10 Essential (primary) hypertension; J44.9 Chronic obstructive pulmonary disease, unspecified; G89.29 Other chronic pain; G43.909 Migraine, unspecified, not intractable, without status migrainosus; Z91.81 History of falling; Z86.73 Personal history of transient ischemic attack (TIA), and cerebral infarction without residual deficits
CPT/HCPCS: 36415; 72141; 76001; 80048; 80053; 82533; 85025; 85610; 85730; 93005; C1713; C1768; C9113; G8978-GP-CM; G8979-GP-CK; G8987-GO-CL; G8988-GO-CJ; J0670; J1100; J1956; J2001; J2270; J2405; J2704; J3010; J3370; J3490; J7050

== ENCOUNTER 2018-04-16 14:33 | Outpatient (CLI) | payer MEDICARE, MEDICAID ==
--- NOTE | 2018-04-16 15:34 | RAD ---
RADIOGRAPH CERVICAL SPINE 3 VIEWS: 04/16/18 at 2:46 p.m. HISTORY: 62-year-old female with cervicalgia status post cervical fusion surgery. COMPARISON: No prior plain radiographs of cervical spine. FINDINGS: There have been laminectomies and placement of bilateral posterior element screws with vertical inter locking rods at all levels from C3 to C6, new since the most recent study of the C-spine, which is an MRI of 01/24/18. There are large, bulky end plate marginal osteophytes encroaching upon the preverte bral space at C4-5, C5-6, and C6-7. No high grade disc space narrowing visualized. All levels inferio r to the C6-7 disc space are obscured by the shoulders on the lateral view. IMPRESSION: 1. Status post laminectomies and posterior element fusion hardware placement at C3-4-5-6. 2. DISH (Diffuse idiopathic skeletal hyperostosis). JN [] POS: [facility]
== END 2018-04-16 14:34 | disposition home or self-care (01) ==
LOC: TBSIIMAG 14:33
PROVIDERS: ATTEND Neurological Surgery
DX: M54.12 Radiculopathy, cervical region (principal); M48.12 Ankylosing hyperostosis [Forestier], cervical region; Z98.890 Other specified postprocedural states
CPT/HCPCS: 72040

== ENCOUNTER 2020-08-30 04:11 | Emergency (ER) | payer MEDICARE, MEDICAID ==
[2020-08-30] MEDS ORDERED: Morphine 2 MG/ML VIAL ONE (04:38)
[2020-08-30] MEDS ORDERED: Ondansetron PF 4 MG/2 ML Vial ONE (04:39)
[2020-08-30 04:45] LABS: #Eosinphils 0.2 thou/uL (0.0-0.7); #Lymphocytes 1.2 thou/uL (1.20-3.40); #Monocytes 0.6 thou/uL (0.11-0.59); #Neutrophils 6.1 thou/uL (1.40-6.50); %Basophils 0.3 % (0.0-1.0); %Eosinophils 2.3 % (0.0-10.0); %Lymphocytes 14.6 % (21.0-51.0); %Neutrophils 75.9 % (42.0-75.0); Hemoglobin 12.1 g/dL (12.0-16.0); Mean Corpuscular HGB CONC 33.6 g/dL (32.0-36.0); Mean Corpuscular Hemoglobin 29.7 pg (27.0-31.0); Mean Corpuscular Volume 88.4 fL (78.0-98.0); Mean Platelet Volume 7.9 fL (7.4-10.4); Platelet Count 183 thou/uL (130-400); RBC Distribution Width 12.8 % (11.5-14.5); Red Blood Cell (RBC) Count 4.07 mill/uL (4.20-5.40)
[2020-08-30 05:15] LABS: ALT (SGPT) 37 U/L (8-55); AST (SGOT) 25 U/L (5-34); Albumin 4.1 g/dL (3.4-4.8); Alkaline Phosphatase 111 U/L (40-110); Anion Gap 14 mmol/L (10-20); BUN (Urea Nitrogen) 13 mg/dL (9.8-20.1); Bilirubin, Total 0.7 mg/dL (0.2-1.2); Calc. Creatinine Clearance 0 mL/min (70-130); Calcium 8.8 mg/dL (7.8-10.44); Carbon Dioxide 22 mmol/L (23-31); Chloride 103 mmol/L (98-107); Globulin 3.9 g/dL (2.4-3.5); Glucose 145 mg/dL (80-115); Lipase 13 U/L (8-78); Potassium 3.7 mmol/L (3.5-5.1); Sodium 135 mmol/L (136-145)
[2020-08-30 06:31] LABS: Bacteria/HPF None Seen HPF (None Seen); Bilirubin Negative (Negative); Blood, Urine Trace (Negative); Clarity Clear (Clear); Glucose, Urine (Dipstick) Normal (Negative); Ketone, Urine Negative (Negative); Leukocyte Negative Leu/uL (Negative); Nitrite Negative (Negative); Protein, Urine (Dipstick) 10 mg/dL (Neg-Trace); Squamous Epithelial 0-3 HPF (0-3); Urobilinogen Normal mg/dL (Less than 2); WBC/HPF 0-3 HPF (0-3)
[2020-08-30 06:34] LABS: Specific Gravity, Urine 1.064 (1.002-1.036)
== END 2020-08-30 07:53 | disposition home or self-care (01) ==
LOC: ERS 04:11
DX: R10.11 Right upper quadrant pain (principal); J44.9 Chronic obstructive pulmonary disease, unspecified; I10 Essential (primary) hypertension; Z86.73 Personal history of transient ischemic attack (TIA), and cerebral infarction without residual deficits
CPT/HCPCS: 51701; 74177; 80053; 83690; 85025; 96374; 96375; 99284; J2270; 36415; 81003; 81015; J2405